=== PATIENT | female | born 1990 | race Caucasian/White ===

== ENCOUNTER → 2020-09-22 10:57 | Outpatient (BNVA) | payer MEDICAID, SELFPAY | PROVIDERS: PCP Family Medicine | DX: N20.0 Calculus of kidney (principal) | CPT/HCPCS: 99212 ==

== ENCOUNTER → 2020-10-06 09:03 | Outpatient (BNVA) | payer OTHER, SELFPAY | PROVIDERS: PCP Family Medicine ==

== ENCOUNTER 2021-12-31 11:42 | Emergency (ER) | payer MEDICAID, SELFPAY ==
--- NOTE | ~2021-12-31 | US_ITS ---
EXAMINATION: US PELVIS CLINICAL INFORMATION: Pain, evaluate for torsion COMPARISON: None TECHNIQUE: Ultrasound of the pelvis is performed using both transabdominal and transvaginal transducers along with Doppler. Transvaginal imaging is performed due to inadequate visualization transabdominally. FINDINGS: The uterus is measuring 5.9 x 3.1 x 3.8 cm. Retroverted and retroflexed. Endometrial canal measuring 3 mm. The right ovary is measuring 2.1 x 1.7 x 1.7 cm. Volume 3 mL. There is flow documented within the ovary. The left ovary is measuring 2.7 x 1.5 x 1.8 cm. There is flow documented within the ovary. Follicles are noted. No free fluid or obvious adnexal mass. US/US pelvic ovarian doppler IMPRESSION: No sonographic evidence for ovarian torsion. No free fluid or obvious adnexal mass
--- NOTE | ~2021-12-31 | US_ITS ---
EXAMINATION: US PELVIS CLINICAL INFORMATION: Pain, evaluate for torsion COMPARISON: None TECHNIQUE: Ultrasound of the pelvis is performed using both transabdominal and transvaginal transducers along with Doppler. Transvaginal imaging is performed due to inadequate visualization transabdominally. FINDINGS: The uterus is measuring 5.9 x 3.1 x 3.8 cm. Retroverted and retroflexed. Endometrial canal measuring 3 mm. The right ovary is measuring 2.1 x 1.7 x 1.7 cm. Volume 3 mL. There is flow documented within the ovary. The left ovary is measuring 2.7 x 1.5 x 1.8 cm. There is flow documented within the ovary. Follicles are noted. No free fluid or obvious adnexal mass. US/US pelvic and transvaginal IMPRESSION: No sonographic evidence for ovarian torsion. No free fluid or obvious adnexal mass
--- NOTE | ~2021-12-31 | CT_ITS ---
EXAMINATION: CT ABDOMEN AND PELVIS WITH CONTRAST CLINICAL INFORMATION: Flank pain. UTI. COMPARISON: None TECHNIQUE: Multidetector volumetric images were obtained from the superior aspect of the liver through the pubic symphysis following administration 85 mL of Omnipaque 350 intravenous contrast. Sagittal and coronal reformatted images were obtained on the technologist's workstation. Oral contrast: No This CT examination was performed using dose optimization techniques as appropriate, variously including the following: *Automated exposure control *Adjustment of mA and/or kV according to patient size (this includes techniques or standardized protocols for targeted exams where dose is matched to indication/reason for exam; i.e. extremities or head) *Use of iterative reconstruction technique DLP: 750 mGy-cm FINDINGS: LUNG BASES: The visualized lung bases are unremarkable. LIVER, GALLBLADDER, AND BILIARY TREE: The liver is normal in size, shape, and attenuation. No focal hepatic lesion or biliary ductal dilatation is present. The gallbladder is unremarkable with no evidence of radiopaque gallstones, gallbladder wall thickening, or obvious pericholecystic inflammatory changes. PANCREAS: Unremarkable. SPLEEN: Unremarkable. ADRENAL GLANDS: Unremarkable. KIDNEYS AND URETERS: The kidneys are normal in size, shape, and attenuation. No hydronephrosis, hydroureter, or calculi seen. No perinephric stranding. BLADDER: Unremarkable. GASTROINTESTINAL TRACT: There is no acute abnormality of the bowel. There is no bowel wall thickening /edema. There is no bowel obstruction. There is a moderate to large volume of stool in the colon. The appendix is normal . The small bowel loops are unremarkable. The stomach is normal. There is no hiatal hernia. ABDOMINAL WALL: No significant hernia is appreciated. LYMPH NODES: Normal. VASCULAR: Unremarkable. PELVIC VISCERA: Unremarkable. OSSEOUS STRUCTURES: Unremarkable. CT/CT abdomen pelvis w IV con IMPRESSION: No significant abnormality. Fleischner guidelines were followed.
[2021-12-31 11:45] VITALS: BP 124/88; PULSE 100; RESP 19; TEMP 36.6; O2SAT 98; BMI 28.1
[2021-12-31 12:26] LABS: MANUAL DIFF FLAG NO
[2021-12-31 12:32] LABS: Basophils Percent Auto 0.3 % (0-2); Eosinophils Absolute Auto 0.1 X10*3/uL (0.0-0.4); Eosinophils Percent Auto 0.9 % (0-4); Hematocrit 40.6 % (37.0-47.0); Hemoglobin 13.9 g/dl (12.0-16.0); Imm Gran Abs Auto 0.03 X10*3/uL (0.00-0.03); Imm Gran Pct Auto 0.2 % (0.0-0.4); Lymphocytes Absolute Auto 2.9 X10*3/uL (1.2-4.9); Lymphocytes Percent Auto 21.2 % (20-40); Mean Corpuscular HGB Conc 34.2 g/dl (31.0-35.0); Mean Corpuscular Hemoglobin 29.6 pg (27.0-33.0); Mean Corpuscular Volume 86.4 fL (80.0-98.0); Monocytes Absolute Auto 0.8 X10*3/uL (0.1-1.2); Monocytes Percent Auto 5.7 % (2-11); Neutrophils Absolute Auto 9.9 x10*3/uL (2.0-8.3); Neutrophils Percent Auto 71.7 % (45-73); Platelet Count 199 X10*3/uL (160-400); Red Cell Distribution Width 11.8 % (11.0-16.0); White Blood Count 13.9 X10*3/uL (4.8-10.8)
[2021-12-31 12:37] LABS: UPreg QC Valid YES; Urine Pregnancy NEGATIVE (NEGATIVE)
[2021-12-31 12:43] LABS: Alanine Aminotransferase 21 U/L (0-31); Albumin Level 4.2 g/dL (3.5-5.0); Alkaline Phosphatase 89 U/L (39-117); Anion Gap 14 (12-20); Aspartate Amino Transferase 18 U/L (5-31); Bilirubin Direct 0.2 mg/dL (0.0-0.5); Bilirubin Total 0.3 mg/dL (0.0-1.0); Blood Urea Nitrogen 13 mg/dL (9-16); Calcium 9.3 mg/dL (8.4-10.2); Carbon Dioxide 26 mmol/L (22-29); Chloride 104 mmol/L (96-108); Creatinine Clr Calc Pharmacy 111.3; Estimated Glomerular Filt Rate > 60; Glucose Random 102 mg/dL (60-115); Lipase 25 U/L (8-78); Potassium 4.2 mmol/L (3.3-5.1); Sodium 140 mmol/L (135-145); Total Protein 6.9 g/dL (6.5-8.0)
[2021-12-31 12:44] LABS: Appearance Urine Turbid; Color Urine Orange; Glucose Urine UA Negative (Negative); Leukocyte Esterase Urine Large (3+) (Negative); Nitrite Urine Positive (Negative); PH 6.5 (5.0-9.0); UMIC TRIGGER UACC YES; Urine Blood Large (3+) (Negative); Urine Ketones Negative (Negative); Urine Protein 300 (3+) mg/dL (Neg-Trace)
[2021-12-31 12:47] LABS: Bacteria Urine 4+ (None Seen); Hyaline Casts Urine 0-2 /LPF (0-2); RBC Urine >20 /HPF (0-2); UACC Culture Trigger YES; WBC Urine >50 /HPF (0-5)
--- NOTE | 2021-12-31 16:07 | ED.ABDPAIN ---
HPI - Abdominal Pain General Chief Complaint: Abdominal Pain Stated Complaint: severe back pain Time Seen by Provider: 12/31/21 15:59 Source: patient Mode of arrival: ambulatory Limitations: no limitations History of Present Illness HPI narrative: 31-year-old female with a PMHx of interstitial cystitis and nephrolithiasis who presents to the ED for evaluation of abdominal pain and flank pain. The patient tells me that for the past 3 weeks she has had worsening lower abdominal pain, bilateral flank pain worse on the right, nausea, and vomiting. She tells me that the pain in her lower abdomen has been worsening and that she has been having difficulty urinating and pain when she urinates. She tells me that she has had urethral polyps removed 3 years ago and recalls having similar pain at that time. She takes Oxybutinin for her intersitial cystitis but has had minimal relief. She saw her PCP this morning for this pain and was advised to come into the ED for further evaluation. She tells me that she has been feeling feverish at home but denies any chills, hematuria, headaches, vision changes, chest pain, or shortness of breath. She does note a remote history of SVT and feeling some fluttering in her chest recently. Of note, the patient is receiving suboxone therapy currently. MD elicited complaint: abdominal pain Related Data Previous Rx's Medication Instructions Recorded codeine sulfate 30 mg tablet 30 mg PO BID PRN diarrhea #20 tabs 09/22/20 Flomax 0.4 mg capsule (tamsulosin) 0.4 mg PO BEDTIME interstitial 10/05/20 cystitis 30 days #30 caps oxybutynin chloride 15 mg 15 mg PO BID 30 days #60 tabs 11/19/21 tablet,extended release 24 hr ketorolac 10 mg tablet 10 mg PO TID PRN pain 5 days #15 12/31/21 tabs levofloxacin 750 mg tablet 750 mg PO DAILY 7 days #7 tabs 12/31/21 Allergies Allergy/AdvReac Type Severity Reaction Status Date / Time amoxicillin Allergy Unknown Verified 09/17/19 00:00 clavulanic acid [Augmentin] Allergy Unknown Verified 09/17/19 00:00 nitrofurantoin [Macrobid] Allergy Unknown Verified 09/17/19 00:00 penicillin V Allergy Unknown Verified 09/17/19 00:00 doxycycline AdvReac Unknown rash Verified 09/17/19 00:00 1st Base Allergy Unknown Uncoded 09/17/19 00:00 sulfa Allergy Unknown Uncoded 09/17/19 00:00 Sulfacet-R Allergy Unknown Uncoded 09/17/19 00:00 tomato Allergy Unknown Uncoded 09/17/19 00:00 TraMADol HCl (Biphasic) Allergy Unknown Uncoded 09/17/19 00:00 Vicodin Allergy Unknown Uncoded 09/17/19 00:00 Review of Systems Review of Systems Constitutional : No Weight loss, + Fever, No Chills, + Fatigue, + Malaise ENT/Mouth : No sore throat, No Rhinorrhea Eyes: No Eye Pain, No Swelling, No Redness Cardiovascular : No Chest Pain, No SOB, No Dyspnea on Exertion, No Orthopnea, No Edema, + Palpitations Respiratory : No Cough, No Sputum, No Wheezing Gastrointestinal : + Nausea, + Vomiting, No Diarrhea, No Constipation, No abdominal Pain, No Hematochezia, No Melena Genitourinary : + Dysuria, + Urinary Frequency, No Hematuria, Musculoskeletal : + joint pain, No Myalgias, No Joint Swelling Skin : No Skin Lesions, No rash Neuro : No Weakness, No Numbness, No Dizziness, No Headache All other systems reviewed and are negative Yes all other systems are reviewed and are negative [facility] Past Medical History Attestation statement: The following information was validated with the patient. Source: old records reviewed and nursing notes reviewed Medical History (Updated 12/31/21 @ 19:30 by FRITZ Johansen) Anxiety Interstitial cystitis (chronic) with hematuria Opioid abuse PTSD (post-traumatic stress disorder) SVT (supraventricular tachycardia) Social History Social History Alcohol intake: never Patient Tobacco Use Status: Current everyday Tobacco user Cigarettes Per Day: 9 Years Smoked: Smoker since age 16 Smoked in Last 30 Days: Yes Use of substances other than those prescribed or required for medical reasons: Yes Substance Use Type: Marijuana Substance Use Frequency: Chronic Longstanding Advance Directives: No Advance Directives Information Provided: Yes Patient : No Physical Exam ED Vital Signs: Vital Signs - 24 hr 12/31/21 11:45 12/31/21 17:30 12/31/21 18:00 Temperature 98 F 99.3 F 98.6 F Pulse Rate 100 69 61 Respiratory Rate 19 16 18 Blood Pressure 124/88 115/77 124/70 Pulse Oximetry 98 97 100 Oxygen Delivery Method Room Air Room Air Room Air Oxygen Flow Rate 98 12/31/21 19:52 Temperature Pulse Rate 63 Respiratory Rate 18 Blood Pressure 123/75 Pulse Oximetry 95 Oxygen Delivery Method Room Air Oxygen Flow Rate BMI result Body Mass Index 28.1 vss Appearance: Alert.? Oriented X3.? No acute distress.?Non toxic appearing Head: Normocephalic, atraumatic, no step-offs or deformities Eyes: Pupils equal, round and reactive to light.? Neck: Normal inspection.? Neck supple.? CVS: Normal heart rate and rhythm.? Pulses normal.? Respiratory: No respiratory distress.? Breath sounds normal.? Abdomen: Soft. + BS. Suprapubic tenderness to palpation. Mild flank tenderness bilaterally. Skin: Skin warm and dry.? Normal skin color.? Normal skin turgor.? Extremities: No lower extremity edema.? No calf ttp. 5/5 strength to bilateral upper and lower extremities DTR wnl to b/l lower extremities 2+ Back: No midline tenderness, no C-spine tenderness, full range of motion, + mild CVA tenderness bilaterally, worse on the right Neuro: Oriented X 3.? No motor deficit.? No sensory deficit. CN 2-12 intact . No saddle paresthesias. Ambulating w/ steady gait and normal coordination Course Reevaluation(s) Reevaluation #1: Patient noted to have leukocytosis, chemistry without acute electrolyte abnormalities requiring intervention. Urine clean. Still high suspicion for pylo. Patient romeo be given IV Levofloxacin. Lactic, blood cultures and abd/ pelvis CT pending at this time. Time: 16:14 Reevaluation #2: Patient now admits to pelvic pain, going on for few weeks worsening. Patient tells me she feels like there is some discomfort in her vagina. Currently not sexually active. Denies history of STDs/STIs. At this time pelvic ultrasound an ovarian ultrasound will be ordered to rule out torsion, cyst, polyps. Time: 16:59 Reevaluation #3: Unremarkable CT of abd and pelvis. US pending Time: 18:06 Additional Reevaluation(s): 191 Upon further questioning patient tells me she has had 2 urinary tract infections within the past 2 weeks patient has been on Cipro and Macrobid without relief of symptoms. Patient's ultrasound pelvic ovarian Doppler with no evidence of ovarian torsion or free fluid. No signs of adnexal masses. TT to Dr. Puentes for input. 1929 Dr. Puentes tells me that this is likely interstitial cystitis, patient should receive IV ceftriaxone and oral Levaquin for 7 days and recommend outpatient Urology follow-up. He tells me I feel as though patient is sick she should be admitted to the hospitalist team however patient hemodynamically stable, patient requesting to go home, no need for hospital admission at this time. I did instruct her that if symptoms persist or do not improve she should return for further evaluation possible hospital admission. At this time patient will be given additional antibiotics plan is for discharge home with p.o. antibiotics. Educated patient on plan, verbalizes understanding and I answered all questions. 2007 Patient reports significant improvement after Toradol and initial dose of antibiotics. Patient currently getting ceftriaxone, tolerating it well. Patient will be discharged home with prompt PCP and urology follow-up. 2035 Patient tolerated antibiotics well currently being discharged home. MDM - Abdominal Pain MDM Narrative Medical decision making narrative: 1609 31 yo F presenting for abdominal pain, flank pain, nausea, and vomiting x 3 weeks. Hx of interstitial cystitis on oxybutinin, kidney stones and urethral polyps s/p removal. Seen by Dr. Davison in the past. PE remarkable for mild suprapubic tenderness and mild bilateral flank pain, worse on the right. Afebrile. Concerns for pylo. Other differentials include uti vs cystitis, kidney stones, obstructing uropathy. Unlikely cauda equina, epidural abcess. Plan- labs, hc, urine, ct abd & pelvis Medical Records Attestation: I reviewed the patient's medical records. Lab Data Attestation: I reviewed the patient's lab results. Result diagrams: 12/31/21 12:21 12/31/21 12:21 Labs: Lab Results 12/31/21 12/31/21 12/31/21 Range/Units 12:20 12:21 12:21 WBC 13.9 H (4.8-10.8) X10*3/uL RBC 4.70 (4.20-5.50) X10*6/uL Hgb 13.9 (12.0-16.0) g/dl Hct 40.6 (37.0-47.0) % MCV 86.4 (80.0-98.0) fL MCH 29.6 (27.0-33.0) pg MCHC 34.2 (31.0-35.0) g/dl RDW 11.8 (11.0-16.0) % Plt Count 199 (160-400) X10*3/uL MPV 10.0 (9.4-12.3) fL Immature Gran % (Auto) 0.2 (0.0-0.4) % Neut % (Auto) 71.7 (45-73) % Lymph % (Auto) 21.2 (20-40) % [place] % (Auto) 5.7 (2-11) % Eos % (Auto) 0.9 (0-4) % Baso % (Auto) 0.3 (0-2) % Lymph # (Auto) 2.9 (1.2-4.9) X10*3/uL [place] # (Auto) 0.8 (0.1-1.2) X10*3/uL Eos # (Auto) 0.1 (0.0-0.4) X10*3/uL Baso # (Auto) 0.0 (0.0-0.2) X10*3/uL Abs Immat Gran (auto) 0.03 (0.00-0.03) X10*3/uL Absolute Neuts (auto) 9.9 H (2.0-8.3) x10*3/uL Absolute Nucleated RBC 0.000 (0.0-0.012) X10*3/uL Nucleated RBC % (auto) 0.0 (0.0-0.2) /100WBC Sodium 140 (135-145) mmol/L Potassium 4.2 (3.3-5.1) mmol/L Chloride 104 (96-108) mmol/L Carbon Dioxide 26 (22-29) mmol/L Anion Gap 14 (12-20) BUN 13 (9-16) mg/dL Creatinine 0.79 (0.5-1.4) mg/dL Estim Creat Clear Calc 111.3 Estimated GFR > 60 Random Glucose 102 (60-115) mg/dL Lactic Acid (0.5-2.0) mmol/L Calcium 9.3 (8.4-10.2) mg/dL Total Bilirubin 0.3 (0.0-1.0) mg/dL Direct Bilirubin 0.2 (0.0-0.5) mg/dL AST 18 (5-31) U/L ALT 21 (0-31) U/L Alkaline Phosphatase 89 (39-117) U/L Total Protein 6.9 (6.5-8.0) g/dL Albumin 4.2 (3.5-5.0) g/dL Lipase 25 (8-78) U/L Urine Color Urine Appearance Urine pH (5.0-9.0) Ur Specific [place] (1.005-1.025) Urine Protein (Neg-Trace) mg/dL Urine Glucose (UA) (Negative) mg/dL Urine Ketones (Negative) mg/dL Urine Blood (Negative) Urine Nitrite (Negative) Ur Leukocyte Esterase (Negative) Urine RBC (0-2) /HPF Urine WBC (0-5) /HPF Ur Squamous Epith Cells (0-2) /HPF Urine Bacteria (None Seen) Hyaline Casts (0-2) /LPF Urine Test NEGATIVE (NEGATIVE) 12/31/21 12/31/21 Range/Units 12:21 16:17 WBC (4.8-10.8) X10*3/uL RBC (4.20-5.50) X10*6/uL Hgb (12.0-16.0) g/dl Hct (37.0-47.0) % MCV (80.0-98.0) fL MCH (27.0-33.0) pg MCHC (31.0-35.0) g/dl RDW (11.0-16.0) % Plt Count (160-400) X10*3/uL MPV (9.4-12.3) fL Immature Gran % (Auto) (0.0-0.4) % Neut % (Auto) (45-73) % Lymph % (Auto) (20-40) % [place] % (Auto) (2-11) % Eos % (Auto) (0-4) % Baso % (Auto) (0-2) % Lymph # (Auto) (1.2-4.9) X10*3/uL [place] # (Auto) (0.1-1.2) X10*3/uL Eos # (Auto) (0.0-0.4) X10*3/uL Baso # (Auto) (0.0-0.2) X10*3/uL Abs Immat Gran (auto) (0.00-0.03) X10*3/uL Absolute Neuts (auto) (2.0-8.3) x10*3/uL Absolute Nucleated RBC (0.0-0.012) X10*3/uL Nucleated RBC % (auto) (0.0-0.2) /100WBC Sodium (135-145) mmol/L Potassium (3.3-5.1) mmol/L Chloride (96-108) mmol/L Carbon Dioxide (22-29) mmol/L Anion Gap (12-20) BUN (9-16) mg/dL Creatinine (0.5-1.4) mg/dL Estim Creat Clear Calc Estimated GFR Random Glucose (60-115) mg/dL Lactic Acid 0.7 (0.5-2.0) mmol/L Calcium (8.4-10.2) mg/dL Total Bilirubin (0.0-1.0) mg/dL Direct Bilirubin (0.0-0.5) mg/dL AST (5-31) U/L ALT (0-31) U/L Alkaline Phosphatase (39-117) U/L Total Protein (6.5-8.0) g/dL Albumin (3.5-5.0) g/dL Lipase (8-78) U/L Urine Color [place] A Urine Appearance Turbid Urine pH 6.5 (5.0-9.0) Ur Specific [place] 1.020 (1.005-1.025) Urine Protein 300 (3+) H (Neg-Trace) mg/dL Urine Glucose (UA) Negative (Negative) mg/dL Urine Ketones Negative (Negative) mg/dL Urine Blood Large (3+) H (Negative) Urine Nitrite Positive H (Negative) Ur Leukocyte Esterase Large (3+) H (Negative) Urine RBC >20 H (0-2) /HPF Urine WBC >50 H (0-5) /HPF Ur Squamous Epith Cells 3-5 (0-2) /HPF Urine Bacteria 4+ (None Seen) Hyaline Casts 0-2 (0-2) /LPF Urine Test (NEGATIVE) ECG Data Attestation: I personally reviewed and interpreted this ECG as follows: ECG interpretation date: 12/31/21 ECG interpretation time: 20:37 Prior ECG tracings: available for review Interpretation: Ventricular rate of 58, AR normal, QRS normal, QT/QTC normal. EKG with bradycardia, no ST elevations or inversions concerning for ischemia. No previous EKGs for comparison Critical Care Time Critical Care Time Critical Care Time: Yes Total Critical Care Time: 35 Attestation: I attest to this time spent taking care of the patient, obtaining history, physical, reviewing labs, imaging, speaking to my attending, speaking to specialist. Discharge Plan Discharge Clinical Impression: UTI (urinary tract infection), Interstitial cystitis Patient Disposition: Home, Self-Care Instructions: Urinary Tract Infection in Women (ED) Additional Instructions: Take your medications as prescribed. If you were prescribed antibiotics today, it is important that you take your medication to their entirety, do not skip any doses, do not finish them early. Follow-up with your primary care provider this week. Please follow-up with Dr. Puentes call his office to see if he can get a sooner appointment. Return to the emergency department with new or worsening symptoms. Such as fevers, chills, chest pain, shortness of breath, nausea, vomiting, dizziness, headache, vision changes, lethargy In case of emergency call 911 You have been placed on Levaquin, this type of antibiotic belongs to a family called fluoroquinolones, there is a black box warning on this medication for tendon rupture, please refrain from physical activity or exercise for 2-3 weeks or until medically cleared. Levofloxacin has been sent to her pharmacy, please do not take tizanidine with this medication. Prescriptions: New ketorolac 10 mg tablet 10 mg PO TID PRN (Reason: pain) 5 Days Qty: 15 0RF Rx Instructions: Tolerated IV in ED levofloxacin 750 mg tablet 750 mg PO DAILY 7 Days Qty: 7 0RF No Action tamsulosin [Flomax] 0.4 mg capsule 0.4 mg PO BEDTIME 30 Days Qty: 30 0RF oxybutynin chloride 15 mg tablet extended release 24hr 15 mg PO BID 30 Days Qty: 60 1RF codeine sulfate 30 mg tablet 30 mg PO BID PRN (Reason: diarrhea) Qty: 20 0RF Referrals: Reji Puentes MD [Physician] - 3 days Physician,Ladonna Candelario [Primary Care Provider] - 2 days Stand Alone Forms: Work/School Release
--- NOTE | 2021-12-31 16:29 | ECG_ITS ---
Test Reason : ABDOMINAL PAIN Blood Pressure : / mmHG Vent. Rate : 058 BPM Atrial Rate : 058 BPM P-R Int : 168 ms QRS Dur : 076 ms QT Int : 380 ms P-R-T Axes : -62 049 -19 degrees QTc Int : 373 ms Unusual P axis, possible ectopic atrial bradycardia Nonspecific T wave abnormality Abnormal ECG No previous ECGs available Referred By: Fred Hess Electronically Signed By:TRISHA SOLIS
[2021-12-31 16:34] LABS: Lactic Acid 0.7 mmol/L (0.5-2.0)
[2021-12-31] MEDS: iohexoL 350 MG/ML 100 ML INFUS..BTL IV (17:25)
[2021-12-31 17:30] VITALS: BP 115/77; PULSE 69; RESP 16; TEMP 37.4; O2SAT 97
[2021-12-31] MEDS: 0.9 % Sodium Chloride 1,000 ML 999 ML IV (17:43)
[2021-12-31] MEDS: levoFLOXacin/D5W 750 MG/150 ML PIGGYBACK 100 MG IV (17:43)
[2021-12-31] MEDS: ondansetron HCL 4 MG/2 ML VIAL IVPUSH (17:44)
[2021-12-31] MEDS: Ketorolac Tromethamine 15 MG/ML VIAL IVPUSH (17:44)
[2021-12-31 18:00] VITALS: BP 124/70; PULSE 61; RESP 18; TEMP 37; O2SAT 100
[2021-12-31 19:52] VITALS: BP 123/75; PULSE 63; RESP 18; O2SAT 95
[2021-12-31] MEDS: diphenhydrAMINE HCL 50 MG/ML VIAL 25 MG IVPUSH (19:56)
[2021-12-31] MEDS: cefTRIAXone sodium 1 GM in 0.9 % Sodium Chloride 50 ML IV (19:56)
--- NOTE | 2021-12-31 20:06 | PC.NURSE ---
pt a&ox3, vss, reporting 7-9/10 pain/spasms in lower pelvis, medicated per provider order, no new orders at this time.
== END 2021-12-31 21:25 | disposition home or self-care (01) ==
PROVIDERS: Physician Assistant; Emergency Provider Internal Medicine
DX: N30.10 Interstitial cystitis (chronic) without hematuria (principal); B96.20 Unspecified Escherichia coli [E. coli] as the cause of diseases classified elsewhere; R10.9 Unspecified abdominal pain; F11.20 Opioid dependence, uncomplicated; Z79.899 Other long term (current) drug therapy
CPT/HCPCS: 36415; 74177; 76830; 76856; 80048; 80076; 81001; 81025; 83605; 83690; 85025; 87040; 87086; 87088; 87186; 93005; 93975; 96361; 96365; 96375; 99285; J0696; J1200; J1885; J1956; J2405; Q9967

== ENCOUNTER → 2022-06-08 14:11 | Outpatient (BNVA) | payer MEDICAID, SELFPAY | PROVIDERS: PCP Family Medicine; Visit Provider Nurse Practitioner Family | DX: N30.10 Interstitial cystitis (chronic) without hematuria (principal); R39.89 Other symptoms and signs involving the genitourinary system | CPT/HCPCS: 99212 ==

== ENCOUNTER 2022-12-28 13:19 | Outpatient (AMB) | payer MEDICAID, SELFPAY ==
--- NOTE | 2022-12-28 13:20 | A.OFFVIS_ITS ---
Intake Intake Visit Reasons: Medication follow up Intake Note: Patient is present for tele visit follow up interstitial cystitis Urology Medications: oxybutynin Blood Thinner: none Operations And Maintenance Supervisor Required: No Allergies amoxicillin Allergy (Unknown, Verified 12/28/22 20:19) Unknown clavulanic acid [Augmentin] Allergy (Unknown, Verified 12/28/22 20:19) Unknown nitrofurantoin [Macrobid] Allergy (Unknown, Verified 12/28/22 20:19) Unknown penicillin V Allergy (Unknown, Verified 12/28/22 20:19) Unknown doxycycline Adverse Reaction (Unknown, Verified 12/28/22 20:19) rash 1st Base Allergy (Unknown, Uncoded 12/28/22 20:19) Unknown sulfa Allergy (Unknown, Uncoded 12/28/22 20:19) Unknown Sulfacet-R Allergy (Unknown, Uncoded 12/28/22 20:19) Unknown tomato Allergy (Unknown, Uncoded 12/28/22 20:19) Unknown TraMADol HCl (Biphasic) Allergy (Unknown, Uncoded 12/28/22 20:19) Unknown Vicodin Allergy (Unknown, Uncoded 12/28/22 20:19) Unknown Medication List - Last Reconciled 12/28/22 by EDWIN Sampson- atenolol 25 mg PO DAILY buprenorphine-naloxone 12-3 mg (Suboxone) 15 mg sublingual DAILY clonazepam 1 mg PO TID PRN minoxidil 2.5 mg PO DAILY 90 days norgestrel-ethinyl estradiol 0.3-30 mg-mcg (Low-Ogestrel (28)) 1 tab PO DAILY oxybutynin chloride ER 15 mg PO BID 30 days HPI HPI Comments History of Present Illness Details Cierra is a 32 year old female patient of Dr. Mcghee. She has a past medical history of opiate abuse, PTSD, anxiety, SVT, and interstitial cystitis. She is being follow-up on today via video telehealth for follow-up of her interstitial cystitis. Of note, patient was originally scheduled for follow-up in office however reports over the last 24 hours has not been feeling well. She reports following up with her PCP regarding nausea and vomiting she has been experiencing. She reports feeling her interstitial cystitis has been somewhat controlled. She does report some days to have/experience lower urinary tract symptoms however she reports episodes are infrequent. She reports most recently noting a spasm to her vagina however is unsure if it is her bladder. She reports to be following up with supervisor cigar making hand for further assessment evaluation. Discussed at length interstitial cystitis. Discussed pelvic floor therapy as well as interstitial cystitis diet. Discussed and stressed the importance of drinking plenty of water daily. However, patient reports she has a difficult time doing so. She otherwise denies hematuria, nocturia, flank pain, fever and or chills. Discussed further assessment evaluation with renal bladder ultrasound however patient also declines at this time. Discussed in office cystoscopy for further assessment evaluation however patient declines at this time. Discussed rescue solution/therapy for interstitial cystitis however patient reports she will need to think about this. Discussed at length bladder triggers/irritant. [facility] Medical History Anxiety Interstitial cystitis (chronic) with hematuria Opioid abuse PTSD (post-traumatic stress disorder) SVT (supraventricular tachycardia) Social History Alcohol intake: never Patient Tobacco Use Status: Current everyday Tobacco user Cigarettes Per Day: 9 Years Smoked: Smoker since age 16 Substance Use Type: Marijuana Review of Systems Const Reports as per HPI Eyes Reports no additional complaints ENT Reports no additional complaints Card Reports as per HPI Resp Reports no additional complaints GI Reports as per HPI Reports as per HPI Musc Reports no additional complaints Neuro Reports no additional complaints Psych Reports as per HPI Endo Reports no additional complaints Physical Exam Const General: cooperative, healthy appearing, comfortable, no acute distress, well developed, alert and awake Orientation/consciousness: patient oriented x3 Resp Effort & Inspection: normal respiratory effort and able to speak in complete sentences Neuro General: patient oriented x3 Psych Appearance: grossly normal and well kempt Mental Status: mental status grossly normal Speech and movement: Clear speech present Affect: normal affect Attitude: cooperative Thought process: Normal thought process present Thought content: Normal thought content present Insight: Good insight present (Psych) Judgement: Good judgement present (Psych) Assessment & Plan Assessment & Plan (1) Interstitial cystitis: Code(s): N30.10 - Interstitial cystitis (chronic) without hematuria (2) Lower urinary tract symptoms: Code(s): R39.9 - Unspecified symptoms and signs involving the genitourinary system Plan Discussed at length interstitial cystitis Discussed pelvic floor therapy. Information provided on vaginal weights and videos for in-home practice Discussed interstitial cystitis diet. Discussed, educated, and stressed the importance of drinking plenty of water daily. Continue oxybutynin as prescribed Continue to follow with PCP regarding new onset nausea vomiting and supervisor cigar making hand for question vaginal spasms patient is reporting. Discussed further treatment options/interventions; such as retroperitoneal ultrasound, in office cystoscopy, cystoscopy hydrodistention, bladder installations, and or referral to pelvic floor therapy however patient declines at this time Follow-up in office in 3 months with PVR; or sooner with any issues, concerns, and or questions. Patient Instructions: The patient had an opportunity to ask questions regarding the treatment plan. All questions were answered. Physical exam, labs, and imaging were discussed and reviewed in detail. As well as risks, benefits, and discussion of treatment choices. No major barriers to understanding were identified. The patient expressed understanding and agreement with the above treatment plan. The patient was made aware they should contact our office by phone for worsening of their current condition, the appearance of new symptoms, or with any questions or concerns. Compliance is encouraged with any medications and follow up testing that is ordered. It is a privilege to be allowed the opportunity to participate in? your urological care.? Again, if you have any questions or concerns If you have any questions or concerns please do not hesitate to contact me. The office is [phone]. This note is constructed using voice recognition software. While every effort has been made to ensure accuracy brake drum molder errors may have been included. Yours sincerely, Mansi Mederos [facility] Telehealth Telehealth Location of provider rendering services: practice address Location of patient: address on file Patient Identification confirmed using: Name, : Yes Telehealth method: video Patient verbally consented to treatment: Yes Patient verbally consented to billing insurance company: Yes Patient informed of any privacy concerns related to visit: Yes Minutes spent on Phone/Video with Pt.: 35 Coding Level of Care Code Tele Est Pt Level 4 (23395) Diagnoses Interstitial cystitis N30.10 Lower urinary tract symptoms R39.9
--- OUTSIDE RECORDS SUMMARY | 2022-12-28 13:20 | XMS_ITS | Continuity of Care Document ---
Author Name Unknown Organization [facility] ter Address [address] [place] [id number]- Care Team Providers Care [employer] Teacher Name Role Phone Charity Obregon NP Primary Care Physician [phone] Encounter [place] Date(s): 08/12/22 - 09/17/[address] [address]- Attending Physician: Moose Mehta DMD Admitting Physician: Moose Mehta DMD Allergies, Adverse Reactions, Alerts Substance Reaction Severity Status doxycycline VOMITING Mild Active sulfa drugs RASH Mild Active amoxicillin THROAT CLOSES RASH Severe Active penicillins RASH, THROAT CLOSES Severe Active Augmentin RASH Mild Active Vicodin RASH, CONGESTION Mild Active Terazol 3 Active Seafood RASH, VOMITING Active Medications atenolol 25 mg oral tablet 25 mg, 1, tablet, By Mouth, Daily, # 90 tablet, Refills 3, Tot. Refills 3, Maintenance, 09/23/15 12:40:00, Route to Pharmacy Electronically, [id number], [facility]/pharmacy #[id number] Start Date: 09/23/15 Status: Ordered control control, Refills 0, Maintenance, 07/06/11 9:07:05 Start Date: 07/06/11 Status: Ordered Clonazepam = 1 mg, By Mouth, 3 times a day, 0 Refills, Maintenance, 06/07/11 11:24:59 EST Start Date: 06/07/11 Status: Ordered hydrOXYzine hydrochloride 25 mg oral tablet 1 tablet = 25 mg, By Mouth, Daily at bedtime, # 14 tablet, 0 Refills, Soft Stop, 04/21/18 10:37:02 EST, Tablet Start Date: 04/21/18 Stop Date: 05/05/18 Status: Ordered Oxybutynin = 25 mg, By Mouth, 2 times a day, 0 Refills, Maintenance, 08/17/22 10:21:00 EDT Start Date: 08/17/22 Status: Ordered Suboxone 2 mg-0.5 mg sublingual film 1 film, Sublingual, Daily in AM, CUT IN HALF, 0 Refills, Maintenance, 08/17/22 10:18:00 EDT Start Date: 08/17/22 Status: Ordered Suboxone 8 mg-2 mg sublingual film 2 film, Sublingual, Daily at bedtime, 0 Refills, Maintenance, 08/17/22 10:19:00 EDT Start Date: 08/17/22 Status: Ordered Wellbutrin SR 150 mg/12 hours oral tablet, extended release 1 tablet = 150 mg, By Mouth, Daily, 0 Refills, Maintenance, 08/17/22 10:21:00 EDT Start Date: 08/17/22 Status: Ordered Problem List Condition Confirmation Course Effective Dates Status Health St atus Informant Palpitations - rapid Confirmed Active Vital Signs Most recent to oldest [Reference Range]: 1 Height 170.18 cm (08/17/22 11:03 AM) Weight 81.82 kg (08/17/22 11:03 AM) Body Mass Index [18.5-24.99 kg/m2] 28.25 kg/m2 *H* (08/17/22 11:03 AM) Dry Weight 81.82 kg (08/17/22 11:03 AM) Weight Obtained Via Patient/family state d (08/17/22 11:03 AM) Dry Weight Obtained Via Patient/family s tated (08/17/22 11:03 AM) Social History Social History Type Response Smoking Status Current every day antwon layne entered on: 01/29/14 Sex Note * Event Display: Adult Preadmission Health Questionnaire Authored Date: Patient Care team information Care Team Personnel Name: Charity Obregon NP Position: Reference Physician Member Role: PCP Address: Address: [address] [place] [address]- Care Team Related Persons Name: ADRIEL JADYN Address: home [address] [place] [address] Name: LIZ STERLING Address: home [address] [place] [address]
--- OUTSIDE RECORDS SUMMARY | 2022-12-28 13:20 | XMS_ITS | Continuity of Care Document ---
Author Name Unknown Organization [facility] ter Address [address] [place] [address]- Care Team Providers Care Batch Unit Treater Name Role Phone Charity Obregon NP Primary Care Physician Encounter [facility] Date(s): 09/05/22 - 09/05/[address] [address] Discharge Disposition: A-D/C Home Attending Physician: Moose Mehta DMD Admitting Physician: Moose Mehta DMD Referring Physician: Moose Mehta DMD Allergies, Adverse Reactions, Alerts Substance Reaction Severity Status doxycycline VOMITING Mild Active amoxicillin THROAT CLOSES RASH Severe Active penicillins RASH, THROAT CLOSES Severe Active sulfa drugs RASH Mild Active Augmentin RASH Mild Active Vicodin RASH, CONGESTION Mild Active Terazol 3 Active Seafood RASH, VOMITING Active Medications atenolol 25 mg oral tablet 25 mg, 1, tablet, By Mouth, Daily, # 90 tablet, Refills 3, Tot. Refills 3, Maintenance, 09/23/15 12:40:00, Route to Pharmacy Electronically, [id number], [facility]/pharmacy #[id number] Start Date: 09/23/15 Status: Ordered control [...] Most recent to oldest [Reference Range]: 1 2 3 Oxygen Saturation [94-100 %] 99 % (09/05/22 5:30 PM) 99 % (09/05/22 5:15 PM) 100 % (09/05/22 5:00 PM) Pulse Rate [55-90 bpm] 87 bpm (09/05/22 2:50 PM) Blood Pressure [90-138/55-84 mm Hg] 137/79mm Hg (09/05/22 5:30 PM) 141/88mm Hg *H* (09/05/22 5:15 PM) 126/84mm Hg (09/05/22 5:00 PM) Respiratory Rate [16-30 br/min] 11 br/min *L* (09/05/22 5:30 PM) 14 br/min *L* (09/05/22 5:15 PM) 13 br/min *L* (09/05/22 5:00 PM) Temperature [96.8-100.4 DegF] 98.0 DegF (09/05/22 4:45 PM) 98.3 DegF (09/05/22 2:50 PM) Liters per Minute 8 L/min (09/05/22 4:45 PM) Mode of Delivery (Oxygen) Room air (09/05/22 5:30 PM) Room air (09/05/22 5:15 PM) Room air (09/05/22 5:00 PM) Blood pressure sites Arm, right (09/05/22 5:30 PM) Arm, right (09/05/22 5:15 PM) Arm, right (09/05/22 5:00 PM) Temperature Route Temporal (09/05/22 4:45 PM) Temporal (09/05/22 2:50 PM) Dry Weight 86.1 kg (09/05/22 2:50 PM) Dry Weight Obtained Via Standing scale (09/05/22 2:50 PM) Social History Social History Type Response Smoking Status Current every day antwon tillman entered on: 01/29/14 Sex Note * Rigo Sebastian RN: PERFORM Event Display: Discharge/Transfer Note Hospital Authored Date: [id number] Nursing Discharge Note Entered On: 09/05/2022 17:42 EDT Performed On: 09/05/2022 17:42 EDT by Rigo Sebastian RN Nursing Discharge Note 2 Discharge Time : 09/05/2022 17:45 EDT Discharge Level of Care at Discharge : Home/Assisted/Foster Care Patient Left Unit Via : Wheelchair Patient Accompanied Off Unit with : Significant other DC Instructions Provided & Signed by Pt : Yes Patient Understands D/C Instructions : Yes Patient Instructions Discharge Signed : Yes Did Pt have Specialty Bed or Wound Vac : No Rigo Sebastian RN - 09/05/2022 17:42 EDT * Rigo Sebastian RN: PERFORM Event Display: Patient Education/Instruction Authored Date: [id number] Inpatient Adult Discharge Instructions [address] [address] Name: ADRIEL SALOMON : 1990 Visit: 09/05/2022 14:01:00 Current Date: 09/05/2022 17:15 Account: [id number] Inpatient Adult Discharge Instructions We would like to thank you for allowing us to assist you with your healthcare needs. The following includes patient education materials and information regarding your injury/illness. Our entire staffstrives to provide an excellent experience for our patients and their families. PLEASE ENSURE YOU FOLLOW-UP PER THE INSTRUCTIONS BELOW! ?? YOUR OPINION IS IMPORTANT TO US! Please complete the survey you may receive by mail or email. Your feedback will be used to make improvements to the healthcare experiences of our patients and their families. Surveys are administered by [employer] ?? If further treatment with your primary care physician or another doctor is recommended, it is important for you to keep the appointment. Call your primary care physician or return to the Emergency Department immediately if your condition worsens, fails to improve, or new symptoms develop. If you need to find a doctor, you can call [facility] Risk I/O for a referral at [phone] or toll free at [phone]) or log in to [email or web address].. ?? You can view and manage your care through the patient portal or by using a health care cain of your choosing. [employer] is a website that allows you to securely view your medical information including your hospital discharge summary, office visit summaries, medications and follow-up visits. You can also request appointments, renew medications, and request access to your medical information using a health care cain of your choosing, or just ask a question. You can enroll at [email or web address] or register during your next office visit. You have been discharged from [facility], Patient Care Unit: [facility]. If you have any questions regarding these instructions after you leave, please call us and we will be happy to assist you. [facility] Your Care Team Attending Physician Moose Mehta DMD Consulting Providers Christopher Hernandez DO Discharging Providers Moose Mehta DMD Reason for Your Visit DENTAL CARIESDS CS Tests Performed Below is a partial list of the tests performed during your hospitalization. You may have had other tests and procedures not included in this list. Please discuss all test results with your provider. Primary Care Provider Charity Obregon NP Advance Directive . Discharge Vitals Temperature: 98 DegF Pulse Rate: 87 bpm Respiratory Rate:??13 br/min??Low Systolic Blood Pressure: 126 mm Hg Diastolic Blood Pressure: 84 mm Hg Oxygen Saturation: 100 % Studies Pending All tests and labs ordered during this hospital stay have been completed unless listed below. Please discuss all pending results with your provider listed above in these instructions. ?? No incomplete studies found What to do next Instructions From Your Doctor Discharge Orders Instructions from your Care Team follow Dr. Mehta's written discharge instructions ?? written prescriptions sent with pt You Need to Schedule the Following Appointments Follow Up with??Janine DMD, Max When:??09/14/2022 01:40 AM EDT Where: [address] [place] [address], [address] [facility] [place] [address]- Discharge Medications ADRIEL SALOMON :1990 Visit Date:09/05/2022 Medications: Please continue your medications until treatment is completed or stopped by your provider. Medications not listed below should be discontinued. Discuss any questions related to medications with your provider. What How Much When Instructions Next Dose Unchanged Atenolol (atenolol 25 mg oral tablet) 1 tab(s) Oral Daily Unchanged Buprenorphine-Naloxone (Suboxone 2 mg-0.5 mg sublingual film) 1 Film Sublingual Daily in the morning CUT IN HALF ?? Unchanged Buprenorphine-Naloxone (Suboxone 8 mg-2 mg sublingual film) 2 Film Sublingual Daily at Bedtime Unchanged BuPROpion (Wellbutrin SR 150 mg/ 12 hours oral tablet, extended release) 1 tab(s) Oral Daily Unchanged Clonazepam 1 Milligram Oral 3 times a day Unchanged HydrOXYzine (hydrOXYzine hydrochloride 25 mg oral tablet) 1 tab(s) Oral Daily at Bedtime Duration: 14 Days Unchanged Miscellaneous Rx ( control) Unchanged Oxybutynin 25 Milligram Oral Twice a day Test Results Below is a partial list of the most recent Laboratory test results done prior to this discharge. You may have had other tests and procedures not included in this list. Please discuss all test resultswith your provider. Allergies (NKA means No Known Allergies) amoxicillin??(THROAT CLOSES, RASH) penicillins??(RASH, THROAT CLOSES) Augmentin??(RASH) Vicodin??(RASH, CONGESTION) doxycycline??(VOMITING) sulfa drugs??(RASH) Seafood??(RASH, VOMITING) Terazol 3 Problems Active Problems??(1) Palpitations - rapid?? Education Materials Below is the list of Educational Leaflet Providered with your Discharge Instructions. Surgery Medical Daystay Surgical Overnight Discharge Instructions?? Valuables and Belongings I fully understand and agree that [facility] accepts no responsibility for all my personal property including clothing, toilet articles, radios, jewelry, dentures, hearing aids, rings, money, or any other property that is in my possession or is brought to me after admission. I understand certain valuables may be placed in a hospital safe for a short period of time. I understand that the hospital is not liable for loss or damage due to accident, fire, or other natural occurrence while said property is in the safe. I accept full responsibility for any personal property that I keep with me, and will not hold the hospital responsible in case of loss or disappearance. I acknowledge that i have been encouraged to send valuables and belongings home. ?? Date for Pt to Sign Valuables/Belongings: 09/05/22 14:50:00 ?? Valuables & Belongings ?? Clothes Electronic devices Jewelry Monetary Items Personal devices Miscellaneous Medications (Valuables) Valuables at Bedside Pants, Shirt, Shoes, Undergarments ? Purse ? Valuables Sent Home ? Valuables Sent to Security ? Other Discharge Information ? Pulmonary Rehab Status?? Pulmonary Rehab Discharge Status?? Respiratory Rate:??13 br/min??Low ? Common Emergency Awareness Tips IS IT A STROKE? Act FAST and Check for these signs: FACE Does the face look uneven? ARM Does one arm drift down? SPEECH Does their speech sound strange? TIME Call at any sign of stroke ?? Heart Attack Signs Chest discomfort: Most heart attacks involve discomfort in the center of the chest and lasts more than a few minutes, or goes away and comes back. It can feel like uncomfortable pressure, squeezing, fullness or pain. Discomfort in upper body: Symptoms can include pain or discomfort in one or both arms, back, neck, jaw or stomach. Shortness of breath: With or without discomfort. Other signs: Breaking out in a cold sweat, nausea, or lightheaded. Remember, MINUTES DO MATTER. If you experience any of these heart attack warning signs, call to get immediate medical attention! ?? Smoking can increase your chances of developing chronic health problems and can cause harmful effects to other family members in your house. If you smoke, you are strongly encouraged to quit. Please call [facility] [email or web address].uk Link at [phone] or [phone] ([phone]) or log in to [email or web address] for referrals to smoking cessation programs. ?? 273 Suicide & Crisis Lifeline is available 07/11 if you or someone you know needs to find a reason to keep living. By calling 554 you'll be connected to a skilled, trained counselor at a crisis center in your area. INPATIENT DISCHARGE INSTRUCTIONS SIGNATURE PAGE ADRIEL SALOMON Location:[facility] Registration Date and Time:09/05/2022 14:01 EDT Primary Care Physician: Charity Obregon NP, Attending Physician: Moose Mehta DMD, I ADRIEL SALOMON, have received the above patient education materials/instructions and have verbalized understanding. If ambulance or transport services are being used I further acknowledge beinggiven a choice of service. ?? If you need to contact me, please call me at this number: . Patient/Coal Equipment Operator Name: Patient/Coal Equipment Operator Signature: Relationship to Patient: Witness Name/Signature: Date: * Rigo Sebastian RN: PERFORM Event Display: Patient Education Leaflets Authored Date: [id number] Surgery Medical Daystay Surgical Overnight Discharge Instructions ?? 295 Medical Daystay/Surgical Overnight Discharge Instructions ? Since your coordination and judgment may be altered by medication and/or anesthesia, a responsible adult must drive you home from the hospital. ? If you have received medication for pain or sedation while under our care, you should not drive, operate machinery, drink alcohol, or sign any legal documents for 24 hours.?? You should have someone with you at home tonight. ? Remain at home the day of discharge.?? You may be up and about unless otherwise instructed by your physician. ? You may resume your daily prescription medication schedule.?? Any depressant medication should be avoided for 24 hours unless otherwise instructed by your surgeon or anesthesiologist. ? Call your physician for a follow-up appointment.? If you experience unusual or severe pain not relied by your pain medication, excessive bleedingor drainage, persistent nausea and vomiting, excessive swelling or redness, foul odor from incisionsite or fever over 100.6F, you need to call your physician. ? A follow-up phone call by a nurse will be made the day after your procedure.?? If you have stayed with us over night, you will not be receiving a follow-up phone call. ? Nausea and vomiting are a common side effect of prescription pain medication.?? We recommend that pills are not taken on an empty stomach.?? While taking any prescription pain medication you should not drive or drink alcohol. ? Patient Care team information Care Team Personnel Name: Charity Obregon NP Position: Reference Physician Member Role: PCP Address: Address: [address] [place] [id number]- Care Team Related Persons Name: JADYN MOREL Address: [address] [place] [address] Name: LIZ STERLING Address: [address] [place] [address]
== END 2022-12-28 13:53 | disposition home or self-care (01) ==
LOC: HO.HUSH 13:19
PROVIDERS: PCP Family Medicine; Visit Provider Nurse Practitioner Family
DX: N30.10 Interstitial cystitis (chronic) without hematuria (principal); R39.9 Unspecified symptoms and signs involving the genitourinary system
CPT/HCPCS: 99214

== ENCOUNTER → 2022-12-28 13:19 | Outpatient (BNVA) | payer MEDICAID, SELFPAY | PROVIDERS: PCP Family Medicine; Visit Provider Nurse Practitioner Family ==

== ENCOUNTER 2023-04-06 13:43 | Outpatient (AMB) | payer MEDICAID, SELFPAY ==
--- NOTE | 2023-04-06 13:56 | MHC.OFFVIS ---
Intake Intake Visit Reasons: 3m/PVR Intake Note: Patient is present for tele visit follow up interstitial cystitis Urology Medications: oxybutynin Blood Thinner: none PVR: 0ml's User Interface Engineer Required: No Allergies amoxicillin Allergy (Unknown, Verified 04/06/23 17:02) Unknown clavulanic acid [Augmentin] Allergy (Unknown, Verified 04/06/23 17:02) Unknown nitrofurantoin [Macrobid] Allergy (Unknown, Verified 04/06/23 17:02) Unknown penicillin V Allergy (Unknown, Verified 04/06/23 17:02) Unknown doxycycline Adverse Reaction (Unknown, Verified 04/06/23 17:02) rash 1st Base Allergy (Unknown, Uncoded 04/06/23 17:02) Unknown sulfa Allergy (Unknown, Uncoded 04/06/23 17:02) Unknown Sulfacet-R Allergy (Unknown, Uncoded 04/06/23 17:02) Unknown tomato Allergy (Unknown, Uncoded 04/06/23 17:02) Unknown TraMADol HCl (Biphasic) Allergy (Unknown, Uncoded 04/06/23 17:02) Unknown Vicodin Allergy (Unknown, Uncoded 04/06/23 17:02) Unknown Medication List - Last Reconciled 04/06/23 by EDWIN Sampson- atenolol 25 mg PO DAILY buprenorphine-naloxone 12-3 mg (Suboxone) 15 mg sublingual DAILY buprenorphine-naloxone 8-2 mg (Suboxone) 20 mg sublingual DAILY bupropion HCl 150 mg PO QAM clonazepam 1 mg PO TID PRN minoxidil 2.5 mg PO DAILY 90 days norgestrel-ethinyl estradiol 0.3-30 mg-mcg (Low-Ogestrel (28)) 1 tab PO DAILY oxybutynin chloride ER 15 mg PO BID 90 days tizanidine 4 mg PO BID HPI HPI Comments History of Present Illness Details Cierra is a 32 year old female patient of Dr. Mcghee. She has a past medical history of opiate abuse, PTSD, anxiety, SVT, and interstitial cystitis. She presents to the office today for follow-up of her overactive bladder and interstitial cystitis. In discussion with the patient today she reports to be doing and feeling well regarding her urinary issues. She reports feeling oxybutynin 15 mg daily continues to be effective for her overactive bladder symptoms. However, she discusses at length her mental health and has been following up with her PCP for med management. She discusses feeling her new dose of Wellbutrin and Celexa seem to be the right ones for her. She discusses her new job she has had since at a [employer] and how she is trying to work to save money to fix her car. When asked she reports to be attempting to drink plenty of water daily. She otherwise denies hematuria, nocturia, flank pain, fever and or chills. Discussed further assessment evaluation with renal bladder ultrasound, cystoscopy, and or rescue solutions if symptoms arise. In office urinalysis results reviewed with the patient today. PVR 0 mL. She otherwise denies any other bothersome issues or concerns at this time. [facility] Medical History Opioid abuse PTSD (post-traumatic stress disorder) Anxiety SVT (supraventricular tachycardia) Interstitial cystitis (chronic) with hematuria Social History Alcohol intake: never Patient Tobacco Use Status: Current everyday Tobacco user Cigarettes Per Day: 9 Years Smoked: Smoker since age 16 Substance Use Type: Marijuana Review of Systems Const Reports as per HPI Eyes Reports no additional complaints ENT Reports no additional complaints Card Reports as per HPI Resp Reports no additional complaints GI Reports as per HPI Reports as per HPI Musc Reports no additional complaints Neuro Reports no additional complaints Psych Reports as per HPI Endo Reports no additional complaints Physical Exam Const General: cooperative, healthy appearing, comfortable, no acute distress, well developed, alert and awake Orientation/consciousness: patient oriented x3 Limitations: no limitations HEENT Head: Yes normal to inspection, Yes normocephalic and Yes atraumatic Ears: hearing grossly normal bilaterally Eyes General: appearance normal, both eyes and all related structures Neck Neck: Yes normal visual inspection and Yes trachea midline Chest Chest palpation & inspection: normal inspection of the chest Resp Effort & Inspection: normal respiratory effort and able to speak in complete sentences Cardio Rate: regular rate GI Inspection: Yes normal to inspection General: Yes no CVA tenderness Back/Spine/Pelvis Back: no CVA tenderness Skin General skin exam: no rashes or lesions noted Neuro General: patient oriented x3 Extrem General: Yes normal to inspection Psych Appearance: grossly normal and well kempt Mental Status: mental status grossly normal Speech and movement: Normal speech and movement present and Clear speech present Affect: normal affect Attitude: cooperative Thought process: Normal thought process present Thought content: Normal thought content present Insight: Fair insight present (Psych) Judgement: Fair judgement present (Psych) Office Procedures Post Void Residual Post Residual Void Post Void Residual (PVR): 0 [id number]-[id number] Void Residual by ultrasound Results AMB Urinalysis, Automated UA Leukoctes 15 Bar/uL Last Edit by [employer] on 04/06/23 14:15 UA Nitrite Negative Last Edit by [employer] on 04/06/23 14:15 UA Urobilinogen 0.2 mg/dL Last Edit by [employer] on 04/06/23 14:15 UA Protein 15 mg/dL Last Edit by Work[employer] on 04/06/23 14:15 UA pH 6.0 Last Edit by Work[employer] on 04/06/23 14:15 UA Blood 0 Shan/uL Last Edit by Worklight on 04/06/23 14:15 UA Specific [place] 1.030 Last Edit by Worklight on 04/06/23 14:15 UA Ketone Negative Last Edit by Worklight on 04/06/23 14:15 UA Bilirubin 0 mg/dL Last Edit by Worklight on 04/06/23 14:15 UA Glucose 0 mg/dL Last Edit by Worklight on 04/06/23 14:15 Results Reviewed Results Reviewed: Laboratory Last Values Urine pH (Auto) 6.0 04/06/23 14:03 Specific [place] (Auto) 1.030 04/06/23 14:03 Urine Protein (Auto) 15 mg/dL 04/06/23 14:03 Glucose (UA)(Auto) 0 mg/dL 04/06/23 14:03 Urine Ketones (Auto) Negative 04/06/23 14:03 Urine Blood (Auto) 0 Shan/uL 04/06/23 14:03 Urine Nitrite (Auto) Negative 04/06/23 14:03 Urine Bilirubin (Auto) 0 mg/dL 04/06/23 14:03 Urine Urobilinogen (Auto) 0.2 mg/dL 04/06/23 14:03 Leukocyte Esterase (Auto) 15 Bar/uL 04/06/23 14:03 Assessment & Plan Assessment & Plan (1) Interstitial cystitis: Code(s): N30.10 - Interstitial cystitis (chronic) without hematuria (2) Lower urinary tract symptoms: Code(s): R39.9 - Unspecified symptoms and signs involving the genitourinary system Plan In office urinalysis results reviewed with the patient today; as noted above PVR 0 mL Patient currently denies any bothersome urinary issues or concerns Discussed at length importance of utilizing bathroom regularly to void Discussed at length interstitial cystitis Patient continues to perform pelvic floor exercises at home Discussed interstitial cystitis diet. Discussed, educated, and stressed the importance of drinking plenty of water daily. Continue oxybutynin as prescribed; refill provided Discussed further treatment options/interventions; such as retroperitoneal ultrasound, in office cystoscopy, cystoscopy hydrodistention, and or bladder installations if symptoms arise. Follow-up in 6 months with PVR; or sooner with any issues, concerns, and or questions. Orders: Orders AMB Urinalysis Automated Today Z13.9 - Encounter for screening, unspecified AMB Post Void Residual by ultrasound Today R39.9 - Unspecified symptoms and signs involving the genitourinary system Medications: Refilled oxybutynin chloride ER 15 mg PO BID 90 days 180 tabs 2RF Patient Instructions: The patient had an opportunity to ask questions regarding the treatment plan. All questions were answered. Physical exam, labs, and imaging were discussed and reviewed in detail. As well as risks, benefits, and discussion of treatment choices. No major barriers to understanding were identified. The patient expressed understanding and agreement with the above treatment plan. The patient was made aware they should contact our office by phone for worsening of their current condition, the appearance of new symptoms, or with any questions or concerns. Compliance is encouraged with any medications and follow up testing that is ordered. It is a privilege to be allowed the opportunity to participate in? your urological care.? Again, if you have any questions or concerns If you have any questions or concerns please do not hesitate to contact me. The office is [phone]. This note is constructed using voice recognition software. While every effort has been made to ensure accuracy director and professor errors may have been included. Yours sincerely, ANUJ Sampson Coding Level of Care Code Est Pt Level 3 (95863) Diagnoses Interstitial cystitis N30.10 Lower urinary tract symptoms R39.9 CPT Codes Post Residual Void - PVR CPT Code: 87584-Dgvd Void Residual by ultrasound ([id number])
== END 2023-04-06 14:50 | disposition home or self-care (01) ==
PROVIDERS: PCP Family Medicine; Visit Provider Nurse Practitioner Family
DX: N30.10 Interstitial cystitis (chronic) without hematuria (principal); R39.9 Unspecified symptoms and signs involving the genitourinary system; Z13.9 Encounter for screening, unspecified
CPT/HCPCS: 99213

== ENCOUNTER → 2023-04-06 13:43 | Outpatient (BNVA) | payer MEDICAID, SELFPAY | PROVIDERS: PCP Family Medicine; Visit Provider Nurse Practitioner Family | DX: N30.10 Interstitial cystitis (chronic) without hematuria (principal); R39.9 Unspecified symptoms and signs involving the genitourinary system | CPT/HCPCS: 51798; 81003; 99212 ==

== ENCOUNTER 2023-09-21 12:01 | Outpatient (REF) | payer MEDICAID, SELFPAY ==
[2023-09-21 12:29] LABS: Appearance Urine Cloudy; Color Urine Dark Yellow; Glucose Urine UA Negative (Negative); Leukocyte Esterase Urine Trace (Negative); Nitrite Urine Positive (Negative); UMIC TRIGGER UA YES; Urine Blood Negative (Negative); Urine Ketones Negative (Negative); Urine Protein Negative (Neg-Trace)
[2023-09-21 12:35] LABS: Bacteria Urine 4+ (None Seen); Hyaline Casts Urine 0-2 /LPF (0-2); RBC Urine 0-2 /HPF (0-2)
== END 2023-09-21 12:02 | disposition home or self-care (01) ==
LOC: HO.LAB 12:01
PROVIDERS: PCP Nurse Practitioner; Visit Provider Nurse Practitioner Family
DX: N30.10 Interstitial cystitis (chronic) without hematuria (principal); R39.9 Unspecified symptoms and signs involving the genitourinary system; R39.89 Other symptoms and signs involving the genitourinary system
CPT/HCPCS: 81001; 87086

== ENCOUNTER 2024-05-13 11:31 | Outpatient (AMB) | payer MEDICAID, SELFPAY ==
--- NOTE | 2024-05-13 11:39 | A.OFFVIS_ITS ---
Intake Visit Reasons: follow up/PVR Intake Note: Patient presents today for follow up on: interstitial cystitis Urology Medications: oxybutynin Blood Thinner: none PVR: 0ml's Marble Setter Required: No Accompanied by: Self / Same As Patient Allergies amoxicillin Allergy (Unknown, Verified 05/13/24 12:17) Unknown clavulanic acid [Augmentin] Allergy (Unknown, Verified 05/13/24 12:17) Unknown nitrofurantoin [Macrobid] Allergy (Unknown, Verified 05/13/24 12:17) Unknown penicillin V Allergy (Unknown, Verified 05/13/24 12:17) Unknown doxycycline Adverse Reaction (Unknown, Verified 05/13/24 12:17) rash 1st Base Allergy (Unknown, Uncoded 05/13/24 12:17) Unknown sulfa Allergy (Unknown, Uncoded 05/13/24 12:17) Unknown Sulfacet-R Allergy (Unknown, Uncoded 05/13/24 12:17) Unknown tomato Allergy (Unknown, Uncoded 05/13/24 12:17) Unknown TraMADol HCl (Biphasic) Allergy (Unknown, Uncoded 05/13/24 12:17) Unknown Vicodin Allergy (Unknown, Uncoded 05/13/24 12:17) Unknown Medication List - Last Reconciled [facility]13[facility] aten[facility] 25 mg PO DAILY buprenorphine-naloxone 12-3 mg (Suboxone) 15 mg sublingual DAILY buprenorphine-naloxone 8-2 mg (Suboxone) 20 mg sublingual DAILY bupropion HCl XL 150 mg PO QAM clonazepam mg PO BID norgestrel-ethinyl estradiol 0.3-30 mg-mcg (Low-Ogestrel (28)) 1 tab PO DAILY oxybutynin chloride ER 15 mg PO BID 90 days sumatriptan succinate mg PO tizanidine 4 mg PO BID HPI Comments Details: Cierra is a 33 year old female patient of Dr. Hall. She has a past medical history of opiate abuse, PTSD, anxiety, SVT, and interstitial cystitis. She presents to the office today for follow-up of her overactive bladder and interstitial cystitis. In discussion with the patient today she reports since her last office visit here over a year ago she has been under a lot of stress. She discusses being unable to make it to follow-up appointments as scheduled due to other health issue she has been experiencing as well as the recent sudden decline in her mother's mental and physical health. She discusses at length her mother's medical issues. She also discusses following up with her PCP frequently as she has lost over 55 lb in the last year to year and a half unintentionally. She continues to report episodes of urinary urgency, urinary frequency, straining with urination, and bladder pressure. She reports feeling oxybutynin is helpful with episodes of urinary urgency and frequency however continues to experience bladder pressure. In office urinalysis results reviewed with the patient today 1+ microscopic hematuria. We discussed at length potential causes of microscopic hematuria. She does have a longstanding history of nicotine dependence however is attempting to quit. She reports smoking for over 15 years if not longer. She does have a previous history of a cystoscopy with hydrodistention in the past with Dr. White and felt this was helpful. In review of patient's chart ([facility]) it does appear patient underwent 11/2018 cystoscopy, hydrodistention, bladder biopsy x4 with coagulation and fulguration. Pathology 12/03 noted urethral mucosa with acute and chronic inflammation and reactive urothelial atypia; negative for malignancy. She reports previously being on Elmiron for her interstitial cystitis however started experiencing hair loss therefore discontinued the medication. We discussed further workup of microscopic hematuria to include in office cystoscopy however patient discusses at length her history of anxiety and PTSD and does not feel she will be able to undergo an in office cystoscopy. We discussed obtaining CT urogram for further assessment evaluation and obtaining cystoscopy under sedation. She was enquiring repeat hydrodistention as she felt this was helpful in the past. She otherwise denies gross/visible hematuria, flank pain, fever, and or chills. PVR 0 mL. She otherwise offers no other issues or concerns at this time. [facility] Medical History Opioid abuse PTSD (post-traumatic stress disorder) Anxiety SVT (supraventricular tachycardia) Interstitial cystitis (chronic) with hematuria Social History Alcohol intake: never Patient Tobacco Use Status: Current everyday Tobacco user Cigarettes Per Day: 9 Years Smoked: Smoker since age 16 Substance Use Type: Marijuana Review of Systems Const Reports as per HPI Eyes Reports no additional complaints ENT Reports no additional complaints Card Reports as per HPI Resp Reports no additional complaints GI Reports as per HPI Reports as per HPI Musc Reports no additional complaints Neuro Reports no additional complaints Psych Reports as per HPI Endo Reports no additional complaints Physical Exam Const General: cooperative, healthy appearing, comfortable, no acute distress, well developed, alert and awake Orientation/consciousness: patient oriented x3 Limitations: no limitations HEENT Head: Yes normal to inspection, Yes normocephalic and Yes atraumatic Ears: hearing grossly normal bilaterally Eyes General: appearance normal, both eyes and all related structures Neck Neck: Yes normal visual inspection and Yes trachea midline Chest Chest palpation & inspection: normal inspection of the chest Resp Effort & Inspection: normal respiratory effort and able to speak in complete sentences Cardio Rate: regular rate GI Inspection: Yes normal to inspection General: Yes no CVA tenderness Back/Spine/Pelvis Back: no CVA tenderness Skin General skin exam: no rashes or lesions noted Neuro General: patient oriented x3 Extrem General: Yes normal to inspection Psych Appearance: grossly normal and well kempt Mental Status: mental status grossly normal Speech and movement: Normal speech and movement present and Clear speech present Affect: normal affect Attitude: cooperative Thought process: Normal thought process present Thought content: Normal thought content present Insight: Fair insight present (Psych) Judgement: Fair judgement present (Psych) Office Procedures Post Void Residual Post Residual Void Post Void Residual (PVR): 0 [id number] Void Residual by ultrasound Results AMB Urinalysis, Automated UA Leukoctes 0 Bar/uL Last Edit by Suksh Tech.minda Townsend on 05/13/24 12:11 UA Nitrite Last Edit by Benefex Groupethan Townsend on 05/13/24 12:11 UA Urobilinogen 0.2 mg/dL Last Edit by Benefex [employer]an Townsend on 05/13/24 12:11 UA Protein 15 mg/dL Last Edit by Benefex [employer]an Townsend on 05/13/24 12:11 UA pH 6.0 Last Edit by Lizzette Townsend on 05/13/24 12:11 UA Blood 25 Shan/uL Last Edit by Lizzette Townsend on 05/13/24 12:11 UA Specific [place] 1.025 Last Edit by Lizzette Townsend on 05/13/24 12:11 UA Ketone Last Edit by Lizzette Townsend on 05/13/24 12:11 UA Bilirubin 1 mg/dL Last Edit by Lizzette Townsend on 05/13/24 12:11 UA Glucose 0 mg/dL Last Edit by Lizzette Townsend on 05/13/24 12:11 Results Reviewed Results Reviewed: Laboratory Last Values Urine pH (Auto) 6.0 05/13/24 11:47 Specific [place] (Auto) 1.025 05/13/24 11:47 Urine Protein (Auto) 15 mg/dL 05/13/24 11:47 Glucose (UA)(Auto) 0 mg/dL 05/13/24 11:47 Urine Blood (Auto) 25 Shan/uL 05/13/24 11:47 Urine Bilirubin (Auto) 1 mg/dL 05/13/24 11:47 Urine Urobilinogen (Auto) 0.2 mg/dL 05/13/24 11:47 Leukocyte Esterase (Auto) 0 Bar/uL 05/13/24 11:47 Assessment & Plan Assessment & Plan (1) Nicotine dependence: Code(s): F17.200 - Nicotine dependence, unspecified, uncomplicated Category: Medical (2) Microscopic hematuria: Code(s): R31.29 - Other microscopic hematuria Category: Medical (3) Lower urinary tract symptoms: Code(s): R39.9 - Unspecified symptoms and signs involving the genitourinary system Category: Medical (4) Sensation of pressure in bladder area: Code(s): R39.89 - Other symptoms and signs involving the genitourinary system Category: Medical (5) Interstitial cystitis: Code(s): N30.10 - Interstitial cystitis (chronic) without hematuria Category: Medical Plan: Risks, benefits and alternatives to therapy were discussed. These include but are not limited to infection, bleeding, damage to local organs and tissues, need for further interventions. ? Anesthetic risks regarding cardiac arrhythmia, blood clots, and potential mortality were discussed. The patient understands the typical recovery time and the outpatient nature of the procedure. After consideration of these risks the patient gives full informed consent and they wish to move ahead with the procedure. Plan In office urinalysis results reviewed with the patient today; as noted above; will send for urine cytology. Continue oxybutynin as discussed and prescribed. We discussed importance of following up as planned. Will obtain CT urogram for further assessment evaluation. BUN and creatinine ordered for imaging. We discussed at length potential causes for lower urinary tract symptoms patient was experiencing as well as further treatment options and risks and benefits of these treatment options. We discussed bladder triggers/irritants. PVR 0 mL. Will refer to pelvic floor therapy for further assessment evaluation. Will schedule for cystoscopy under sedation with hydrodistention as well as possible bladder biopsies. Follow-up per doctor's orders; or sooner with any issues, concerns, and or questions. Orders: Orders AMB Post Void Residual by ultrasound 05/13/24 R39.9 - Unspecified symptoms and signs involving the genitourinary system CT urogram 05/13/24 F17.200 - Nicotine dependence, unspecified, uncomplicated, N30.10 - Interstitial cystitis (chronic) without hematuria, R31.29 - Other microscopic hematuria, R39.89 - Other symptoms and signs involving the genitourinary system, R39.9 - Unspecified symptoms and signs involving the genitourinary system Urine Cytology 05/13/24 R31.29 - Other microscopic hematuria AMB Urinalysis Automated 05/13/24 Z13.9 - Encounter for screening, unspecified Blood Urea Nitrogen 05/13/24 F17.200 - Nicotine dependence, unspecified, uncomplicated, N30.10 - Interstitial cystitis (chronic) without hematuria, R31.29 - Other microscopic hematuria, R39.89 - Other symptoms and signs involving the genitourinary system, R39.9 - Unspecified symptoms and signs involving the genitourinary system Creatinine 05/13/24 F17.200 - Nicotine dependence, unspecified, uncomplicated, N30.10 - Interstitial cystitis (chronic) without hematuria, R31.29 - Other microscopic hematuria, R39.89 - Other symptoms and signs involving the genitourinary system, R39.9 - Unspecified symptoms and signs involving the genitourinary system PT Evaluation and Treatment 05/13/24 R10.2 - Pelvic and perineal pain Medications: Refilled oxybutynin chloride ER 15 mg PO BID 90 days 180 tabs 0RF Patient Instructions: The patient had an opportunity to ask questions regarding the treatment plan. All questions were answered. Physical exam, labs, and imaging were discussed and reviewed in detail. As well as risks, benefits, and discussion of treatment choices. No major barriers to understanding were identified. The patient expressed understanding and agreement with the above treatment plan. The patient was made aware they should contact our office by phone for worsening of their current condition, the appearance of new symptoms, or with any questions or concerns. Compliance is encouraged with any medications and follow up testing that is ordered. It is a privilege to be allowed the opportunity to participate in? your urological care.? Again, if you have any questions or concerns If you have any questions or concerns please do not hesitate to contact me. The office is [phone]. This note is constructed using voice recognition software. While every effort has been made to ensure accuracy director of consumer affairs errors may have been included. Yours sincerely, ANUJ Sampson Coding Level of Care Code Est Pt Level 4 (94202) Diagnoses Nicotine dependence F17.200 Microscopic hematuria R31.29 Lower urinary tract symptoms R39.9 Sensation of pressure in bladder area R39.89 Interstitial cystitis N30.10 CPT Codes Post Residual Void - PVR CPT Code: 95464-Brmk Void Residual by ultrasound ([id number]) Time Spent (min) 35
--- OUTSIDE RECORDS SUMMARY | 2024-05-13 16:21 | XMS_ITS | Clinical Summary ---
Author Organization [facility] Address [address] [place] [id number] Care Team Providers Care Latin Dancer Name Role Phone Shane Guthrie MD Primary Care Provider [phone] Allergies Active Allergy Reactions Criticality Noted Date Comments Amoxicillin 01/27/2020 Sulfa Antibiotics 01/27/2020 Hydrocodone-Acetaminophen 01/27/2020 Medications Medication Sig Dispensed Refills Start Date End Date Status Naloxone HCl 4 MG/0.1ML LIQD One spray in one nostril, then call 911. If no better after 3 minutes, 1 spray in other nostril and follow Pharmacy's printed instructions. 1 each 0 01/27/2020 Active ondansetron (ZOFRAN-ODT) 4 MG disintegrating tablet Take 1 tablet (4 mg total) by mouth every 6 (six) hours as needed for nausea. 10 tablet 0 01/27/2020 Active Social History Tobacco Use Types Packs/Day Years Used Date Smoking Tobacco: Never Assessed Sex and Gender Information Value Date Recorded Sex Assigned at Female 01/27/2020 12:21 AM EDT Gender Identity Not on file Sexual Orientation Not on file Last Filed Vital Signs Vital Sign Reading Time Taken Comments Blood Pressure 142/72 01/27/2020 2:04 AM EDT Pulse 91 01/27/2020 2:04 AM EDT Temperature 36.3 ??C (97.4 ??F) 01/27/2020 2:04 AM ED T Respiratory Rate 18 01/27/2020 2:04 AM EDT Oxygen Saturation 96% 01/27/2020 2:04 AM EDT Inhaled Oxygen Concentration - - Weight - - Height - - Body Mass Index - - Plan of Treatment Not on file Care Teams Latin Dancer Relationship Specialty Start Date End Date Shane Guthrie MD [address] [facility] [place] [address] PCP - General Physical Medicine and Rehabilitation 01/27/20
--- OUTSIDE RECORDS SUMMARY | 2024-05-13 16:21 | XMS_ITS | Clinical Summary ---
Author Organization [facility] ity [place] [address] Care Team Providers Care Reclamation Kettle Tender Name Role Phone Shane Guthrie MD Primary Care Provider [phone] Social History Tobacco Use Types Packs/Day Years Used Date Smoking Tobacco: Never Assessed Sex and Gender Information Value Date Recorded Sex Assigned at Not on file Gender Identity Not on file Sexual Orientation Not on file Obstetrics History Plan of Treatment Health Maintenance Due Date Last Done Comments DTaP,Tdap,and Td Vaccines (1 - Tdap) 08/27/2007 Hepatitis B Vaccines (1 of 3 - 19+ 3-dose series) 08/27/2007 Cervical Cancer Screening: P ap Smear 2009 COVID-19 Vaccine (2023-2 5 season) 2023 Influenza Vaccine (#1) 2023 HIB Vaccines Aged Out No longer eligi ble based on patient's age to complete this topic HPV Vaccines Aged Out No longer eligi ble based on patient's age to complete this topic Hepatitis A Vaccines Aged Out No long er eligible based on patient's age to complete this topic IPV Vaccines Aged Out No longer eligi ble based on patient's age to complete this topic MMR Vaccines Aged Out No longer eligi ble based on patient's age to complete this topic Meningococcal ACWY Vaccine Aged Out N o longer eligible based on patient's age to complete this topic Pneumococcal Vaccine: Pediat rics (0 to 5 Years) and At-Risk Patients (6 to 64 Years) Aged Out No longer eligible b ased on patient's age to complete this topic RSV Immunization Patients Un nayeli 20 months Aged Out No longer eligible b ased on patient's age to complete this topic Varicella Vaccines Aged Out No longer eligible based on patient's age to complete this topic Care Teams Reclamation Kettle Tender Relationship Specialty Start Date End Date Shane Guthrie MD PCP - General Physical Medicine and Rehabilitation 01/27/20
== END 2024-05-13 12:17 | disposition home or self-care (01) ==
PROVIDERS: PCP Nurse Practitioner; Visit Provider Nurse Practitioner Family
DX: F17.200 Nicotine dependence, unspecified, uncomplicated (principal); R31.29 Other microscopic hematuria; R39.9 Unspecified symptoms and signs involving the genitourinary system; R39.89 Other symptoms and signs involving the genitourinary system; N30.10 Interstitial cystitis (chronic) without hematuria
CPT/HCPCS: 99214

== ENCOUNTER 2024-05-13 11:31 | Outpatient (REF) | payer MEDICAID, SELFPAY ==
[2024-05-13 16:57] LABS: Urine Cytology See Pathology rpt
--- OUTSIDE RECORDS SUMMARY | 2024-05-13 19:20 | XMS_ITS | Clinical Summary ---
Author Organization [facility] [place] [address] Care Team Providers Care Shell Sorter Name Role Phone Shane Guthrie MD Primary Care Provider Social History Tobacco Use Types Packs/Day Years [...] age to complete this topic Care Teams Shell Sorter Relationship Specialty Start Date End Date Shane Guthrie MD PCP - General Physical Medicine and Rehabilitation 01/27/20
--- OUTSIDE RECORDS SUMMARY | 2024-05-13 19:20 | XMS_ITS | Clinical Summary ---
Author Organization [facility] Address [address] [place] [id number] Care Team Providers Care Flatwork Folder Name Role Phone Shane Guthrie MD Primary Care Provider [phone] Allergies Active Allergy Reactions Criticality Noted Date [...] of Treatment Not on file Care Teams Flatwork Folder Relationship Specialty Start Date End Date Shane Guthrie MD [address] [facility] [place] [address] PCP - General Physical Medicine and Rehabilitation 01/27/20
== END 2024-05-13 11:32 | disposition home or self-care (01) ==
LOC: HO.LNP 11:31
PROVIDERS: PCP Nurse Practitioner; Visit Provider Nurse Practitioner Family
DX: R39.9 Unspecified symptoms and signs involving the genitourinary system (principal); R31.29 Other microscopic hematuria; F17.200 Nicotine dependence, unspecified, uncomplicated; R39.89 Other symptoms and signs involving the genitourinary system; N30.10 Interstitial cystitis (chronic) without hematuria
CPT/HCPCS: 51798; 81003; 88112; 99212

== ENCOUNTER 2024-06-18 07:01 | Day surgery (SDC) | payer MEDICAID, SELFPAY ==
[2024-06-14 09:30] VITALS: BMI 21.1
--- NOTE | 2024-06-17 12:09 | P.CONAN_ITS ---
Documented by User: Puja Walters NP 06/17/24 12:10 HPI - Anesthesia Eval Consult details Narrative: 33yo F for Cystoscopy Hydrodistention of Bladder, possible bladder biopsies Suboxone 12mg daily PMFSH Active Problems Active Problems: All Active Problems Nicotine dependence (Acute) Microscopic hematuria (Acute) Lower urinary tract symptoms (Acute) Sensation of pressure in bladder area (Acute) Interstitial cystitis (Acute) Kidney stone (Acute) Past Medical History Medical History Opioid abuse PTSD (post-traumatic stress disorder) Anxiety SVT (supraventricular tachycardia) Interstitial cystitis (chronic) with hematuria Surgical History Surgical History (Updated 06/14/24 @ 09:28 by Madison Rudd RN) History of esophagogastroduodenoscopy (EGD) Hx of oral surgery Hx of cystoscopy Social History Social History (Updated 06/14/24 @ 09:30 by Madison Rudd RN) Alcohol intake: never Patient Tobacco Use Status: Current everyday Tobacco user Tobacco use type: Cigarette Cigarettes Per Day: 9 Years Smoked: 17 Substance Use Type: Former Substance User, Marijuana and Opiates Substance Use Type Other:: marijuana daily/former opiate abuse/taking suboxone Spiritual Healthcare Practices: none Orthodoxy Healthcare Practices: none Cultural Healthcare Practices: none Are you DNR?: No Advance Directives: No (S.O. is primary contact) Advance Directives on File: No Recently lost weight without trying: No Eating poorly because of decreased appetite: No Nutrition Risks: No Nutritional Risk Patient : No : No Poor oral hygiene: No (edentulous-upper full denture only) Meds Allergies Allergy/AdvReac Type Severity Reaction Status Date / Time Sulfa (Sulfonamide Allergy Severe lost Verified 06/18/24 07:29 Antibiotics) consciousness amoxicillin Allergy Unknown Unknown Verified 06/18/24 07:29 clavulanic acid [Augmentin] Allergy Unknown Unknown Verified 06/18/24 07:29 hydrocodone Allergy Unknown Unknown Verified 06/18/24 07:29 Penicillins Allergy Unknown Unknown Verified 06/18/24 07:29 tomato Allergy Unknown Unknown Verified 06/18/24 07:29 tramadol Allergy Unknown Unknown Verified 06/18/24 07:29 doxycycline AdvReac Intermediate rash Verified 06/18/24 07:29 Home Medications ?Medication ?Instructions ?Recorded ?Confirmed ?Last Taken ?Type atenolol 25 mg tablet 25 mg PO DAILY 06/08/22 06/18/24 06/18/24 History norgestrel 0.3 mg-ethinyl 1 tab PO DAILY 06/08/22 06/18/24 Unknown History estradiol 30 mcg tablet (Low-Ogestrel (28)) buprenorphine 8 mg-naloxone 2 mg 12 mg sublingual DAILY 04/06/23 06/18/24 Unknown History sublingual film (Suboxone) bupropion HCl 150 mg 24 hr tablet, 150 mg PO QAM 04/06/23 06/18/24 Unknown History extended release tizanidine 4 mg tablet 4 mg PO BID 04/06/23 06/18/24 Unknown History clonazepam 0.5 mg tablet 0.5 mg PO BID 05/13/24 06/18/24 06/18/24 History sumatriptan succinate 50 mg tablet 50 mg PO DAILY PRN Migraine 05/13/24 06/18/24 Unknown History Headache Exam Height,Weight and Vital Signs: Height 5 ft 7 in Weight 61.235 kg Assessment and Plan Assessment Anesthesia Assessment: Chart Reviewed Documented by User: Froilan Jordan MD 06/18/24 08:25 [facility] Past Medical History Medical History Opioid abuse PTSD (post-traumatic stress disorder) Anxiety SVT (supraventricular tachycardia) Interstitial cystitis (chronic) with hematuria Patient : No Family History Family history of problems with anesthesia: No Surgical History Surgical History (Updated 06/14/24 @ 09:28 by Madison Rudd RN) History of esophagogastroduodenoscopy (EGD) Hx of oral surgery Hx of cystoscopy History of Problems with Anesthesia: No Social History Social History (Updated 06/14/24 @ 09:30 by Madison Rudd RN) Alcohol intake: never Patient Tobacco Use Status: Current everyday Tobacco user Tobacco use type: Cigarette Cigarettes Per Day: 9 Years Smoked: 17 Substance Use Type: Former Substance User, Marijuana and Opiates Substance Use Type Other:: marijuana daily/former opiate abuse/taking suboxone Spiritual Healthcare Practices: none Orthodoxy Healthcare Practices: none Cultural Healthcare Practices: none Are you DNR?: No Advance Directives: No (S.O. is primary contact) Advance Directives on File: No Recently lost weight without trying: No Eating poorly because of decreased appetite: No Nutrition Risks: No Nutritional Risk Patient : No : No Poor oral hygiene: No (edentulous-upper full denture only) Meds Allergies Allergy/AdvReac Type Severity Reaction Status Date / Time Sulfa (Sulfonamide Allergy Severe lost Verified 06/18/24 07:29 Antibiotics) consciousness amoxicillin Allergy Unknown Unknown Verified 06/18/24 07:29 clavulanic acid [Augmentin] Allergy Unknown Unknown Verified 06/18/24 07:29 hydrocodone Allergy Unknown Unknown Verified 06/18/24 07:29 Penicillins Allergy Unknown Unknown Verified 06/18/24 07:29 tomato Allergy Unknown Unknown Verified 06/18/24 07:29 tramadol Allergy Unknown Unknown Verified 06/18/24 07:29 doxycycline AdvReac Intermediate rash Verified 06/18/24 07:29 Home Medications ?Medication ?Instructions ?Recorded ?Confirmed ?Last Taken ?Type atenolol 25 mg tablet 25 mg PO DAILY 06/08/22 06/18/24 06/18/24 History norgestrel 0.3 mg-ethinyl 1 tab PO DAILY 06/08/22 06/18/24 Unknown History estradiol 30 mcg tablet (Low-Ogestrel (28)) buprenorphine 8 mg-naloxone 2 mg 12 mg sublingual DAILY 04/06/23 06/18/24 Unknown History sublingual film (Suboxone) bupropion HCl 150 mg 24 hr tablet, 150 mg PO QAM 04/06/23 06/18/24 Unknown History extended release tizanidine 4 mg tablet 4 mg PO BID 04/06/23 06/18/24 Unknown History clonazepam 0.5 mg tablet 0.5 mg PO BID 05/13/24 06/18/24 06/18/24 History sumatriptan succinate 50 mg tablet 50 mg PO DAILY PRN Migraine 05/13/24 06/18/24 Unknown History Headache Exam Airway Mallampati Class: II TM Dist: >3cm Neck ROM: Full Denture: Upper and Lower Heart: ok Lungs: ok Assessment and Plan Assessment Anesthesia Assessment: Anesthesia Plan Discussed Final Anesthetic Review Family History of Problems with Anesthesia: No History of Problems with Anesthesia: No NPO: Yes ASA Class: III Final Preanesthetic Review: No Changes in Pt Med Stat, Meds/Allgs Chart Reviewed, Consent Obtained/Reviewed and Anes Risks/Benef Reviewed Patient Risk: Intermediate Procedure Risk: Low Anesthetic Plan Anesthetic Plan: GA and Agree w/ Assess. and Plan Disposition: Standard PACU
[2024-06-18] VITALS (8 sets, daily range): BP systolic 89–99; BP diastolic 58–67; PULSE 56–86; RESP 14–20; TEMP 36.1–37.2; O2SAT 99–100
[2024-06-18 07:24] LABS: UPreg QC Valid YES; Urine Pregnancy NEGATIVE (NEGATIVE)
[2024-06-18] MEDS: Lactated Ringers 1,000 ML 100 ML IVCONT (07:46)
--- NOTE | 2024-06-18 08:23 | P.OP_ITS ---
Operative Note Operative Note Date of Service: 06/18/24 Narrative: PREOP DIAGNOSIS: Interstitial cystitis, pelvic pain, microscopic hematuria POSTOP DIAGNOSIS: Interstitial cystitis, pelvic pain, microscopic hematuria, PROCEDURE: CYSTOSCOPY HYDRODISTENTION Anethesia: General Surgeon: Dr. Nataliya Doherty Details of procedure: The patient was brought into the operating room placed on the OR table in supine position. 2 g of Ancef IV. General anesthesia was administered. The patient was repositioned into lithotomy position, prepped and draped in the usual sterile fashion. Time-out was done per protocol. A 22 fr cystoscope was placed transurethrally into the bladder. Urine was drained from the bladder measuring 200 mL. The right and left ureteral orifices were visualized. The entire bladder was visualized. Scarring from previous bladder biopsies noted. There were no suspicious bladder lesions seen. The bladder was filled with sterile water at 80 cm of water pressure under gravity. The bladder was distended for 2 minutes. Bladder capacity measured 950 mL. Revisualization of the bladder, noted mild petechaie. No Hunner ulcerations. The bladder was refilled with sterile water again at 80 cm of water pressure und er gravity. The bladder was distended for 3 minutes. The fluid was drained from the bladder and measured 1000 mL. The cystoscope was removed. 2% lidocaine urojet was passed transurethrally, Solution of (1% lidocaine plain, 15 mL, 0.5 % Marcaine 15 mL) instilled transurethrally into the bladder. Belladonna suppository per recturm. The patient was brought out of anesthesia and taken to recovery in stable condition. Complications: None EBL: minimal (<5 mL) Drains: none
--- NOTE | 2024-06-18 08:24 | MHC.SHP ---
Pre-Procedural Eval Section A - 24 Hr Update-Section A only Date of Service: 06/18/24 The patient is an INPATIENT: No The patient has been examined within 24 hours of the surgical procedure. The History & Physical has been completed within 30 days and I have reviewed it.: Yes Section B - Complete if H&P > 30 days Chief Complaint: Interstitial cystitis (chronic) without hematuria Allergies: Allergies Allergy/AdvReac Type Severity Reaction Status Date / Time Sulfa (Sulfonamide Allergy Severe lost Verified 06/18/24 07:29 Antibiotics) consciousness amoxicillin Allergy Unknown Unknown Verified 06/18/24 07:29 clavulanic acid [Augmentin] Allergy Unknown Unknown Verified 06/18/24 07:29 hydrocodone Allergy Unknown Unknown Verified 06/18/24 07:29 Penicillins Allergy Unknown Unknown Verified 06/18/24 07:29 tomato Allergy Unknown Unknown Verified 06/18/24 07:29 tramadol Allergy Unknown Unknown Verified 06/18/24 07:29 doxycycline AdvReac Intermediate rash Verified 06/18/24 07:29 Plan Diagnosis/Plan: Unchanged I have reviewed the history and physical and performed a pertinent physical examination on my patient. No changes have occurred unless specified. Cystoscopy. Hydrodistension. Discussed risks to include but not limited to, blood in the urine, burning with urination, urgency. Time Spent With Patient Time: Total time managing care of this patient today ____ minutes.
[2024-06-18] MEDS: Phenazopyridine HCL 200 MG TABLET PO (09:34)
[2024-06-18] MEDS: Acetaminophen 325 MG TABLET 975 MG PO (09:35)
[2024-06-18] MEDS: hydrOXYzine HCL 50 MG/ML VIAL IM (10:04)
== END 2024-06-18 10:31 | disposition home or self-care (01) ==
PROVIDERS: Nurse Practitioner; Visit Provider Urology
PROC: 0T7B7ZZ Dilation of Bladder, Via Natural or Artificial Opening (ICD-10-PCS; CPT 52260; principal; 2024-06-18 08:40)
DX: N30.11 Interstitial cystitis (chronic) with hematuria (principal); R10.2 Pelvic and perineal pain; R31.29 Other microscopic hematuria; I47.10 Supraventricular tachycardia, unspecified; F41.9 Anxiety disorder, unspecified; F43.10 Post-traumatic stress disorder, unspecified; F11.11 Opioid abuse, in remission; Z79.899 Other long term (current) drug therapy; Z88.0 Allergy status to penicillin; Z88.1 Allergy status to other antibiotic agents; Z88.2 Allergy status to sulfonamides; Z88.5 Allergy status to narcotic agent; F17.210 Nicotine dependence, cigarettes, uncomplicated
CPT/HCPCS: 52260; 81025; J0690; J1644; J2003; J2250; J2405; J2704; J2795; J3010; J3410

== ENCOUNTER → 2024-06-18 07:01 | Outpatient (BNV) | payer MEDICAID, SELFPAY | PROVIDERS: Visit Provider Urology | DX: N30.10 Interstitial cystitis (chronic) without hematuria (principal) | CPT/HCPCS: 52260 ==

== ENCOUNTER 2024-06-24 13:39 | Outpatient (REF) | payer MEDICAID, SELFPAY ==
--- OUTSIDE RECORDS SUMMARY | 2024-06-24 18:29 | XMS_ITS | Clinical Summary ---
Author Organization [facility] [place] [address] Care Team Providers Care Rehabilitation Medicine Physician Name Role Phone Shane Guthrie MD Primary Care Provider [phone] Social History Tobacco Use Types Packs/Day Years Used Date Smoking Tobacco: Never Assessed Comments Unknown Sex and Gender Information Value Date Recorded Sex Assigned at Not on file Legal Sex Female 11:11 PM EST Gender Identity Not on file Sexual Orientation Not on file Obstetrics History Plan of Treatment Health Maintenance Due Date Last Done Comments DTaP,Tdap,and Td Vaccines (1 - Tdap) 08/27/2007 Hepatitis B Vaccines (1 of 3 - 19+ 3-dose series) 08/27/2007 Cervical Cancer Screening: P ap Smear 2009 COVID-19 Vaccine ( - 2023-2 5 season) 2023 Influenza Vaccine (#1) 2023 [...] patient's age to complete this topic Meningococcal B Vacine Aged Out No lo nger eligible based on patient's age to complete [...] age to complete this topic Care Teams Rehabilitation Medicine Physician Relationship Specialty Start Date End Date Shane Guthrie MD PCP - General Physical Medicine and Rehabilitation 01/27/20
--- OUTSIDE RECORDS SUMMARY | 2024-06-24 18:29 | XMS_ITS | Clinical Summary ---
Author Organization [facility] Address [address] [place] [id number] Care Team Providers Care Car Rental Agent Name Role Phone Shane Guthrie MD Primary Care Provider [phone] Allergies Active Allergy Reactions Criticality Noted Date [...] of Treatment Not on file Care Teams Car Rental Agent Relationship Specialty Start Date End Date Shane Guthrie MD [address] [facility] [place] [address] PCP - General Physical Medicine and Rehabilitation 01/27/20
== END 2024-06-24 13:40 | disposition home or self-care (01) ==
LOC: HO.LNP 13:39
PROVIDERS: PCP Nurse Practitioner; Visit Provider Urology
DX: N30.10 Interstitial cystitis (chronic) without hematuria (principal); R39.9 Unspecified symptoms and signs involving the genitourinary system
CPT/HCPCS: 51798; 87086

== ENCOUNTER 2024-07-11 | Outpatient (REF) | payer MEDICAID, SELFPAY ==
--- OUTSIDE RECORDS SUMMARY | 2024-10-10 17:37 | XMS_ITS | Clinical Summary ---
Author Organization [facility] Address [address] [place] [id number] Care Team Providers Care Gold Blower Name Role Phone Shane Guthrie MD Primary Care Provider [phone] Allergies Active Allergy Reactions Criticality Noted Date [...] 91 01/27/2020 2:04 AM EDT Temperature 36.3 C (97.4 F) 01/27/2020 2:04 AM EDT Respiratory Rate 18 01/27/2020 2:04 AM EDT Oxygen Saturation 96% 01/27/2020 2:04 AM EDT Inhaled Oxygen Concentration - - Weight - - Height - - Body Mass Index - - Plan of Treatment Not on file Care Teams Gold Blower Relationship Specialty Start Date End Date Shane Guthrie MD [address] [facility] [place] [address] PCP - General Physical Medicine and Rehabilitation 01/27/20
== END 2024-07-11 00:01 | disposition home or self-care (01) ==
LOC: CF
PROVIDERS: PCP Nurse Practitioner; Visit Provider Urology
DX: R31.29 Other microscopic hematuria (principal); R39.9 Unspecified symptoms and signs involving the genitourinary system; Z13.9 Encounter for screening, unspecified; F17.210 Nicotine dependence, cigarettes, uncomplicated
CPT/HCPCS: 51798; 81003; 99212

== ENCOUNTER 2024-07-11 16:06 | Outpatient (AMB) | payer MEDICAID, SELFPAY ==
--- NOTE | 2024-07-11 16:13 | A.OFFVIS_ITS ---
Intake Visit Reasons: Hydrodistention- follow up Intake Note: Patient presents today for follow up on hydrodistention Urology Medications: oxybutynin Blood Thinner: none PVR: 0ml's Bridge Saw Operator Required: No Accompanied by: Self / Same As Patient Allergies Sulfa (Sulfonamide Antibiotics) Allergy (Severe, Verified 07/11/24 16:33) lost consciousness amoxicillin Allergy (Unknown, Verified 07/11/24 16:33) Unknown clavulanic acid [Augmentin] Allergy (Unknown, Verified 07/11/24 16:33) Unknown hydrocodone Allergy (Unknown, Verified 07/11/24 16:33) Unknown Penicillins Allergy (Unknown, Verified 07/11/24 16:33) Unknown tomato Allergy (Unknown, Verified 07/11/24 16:33) Unknown tramadol Allergy (Unknown, Verified 07/11/24 16:33) Unknown doxycycline Adverse Reaction (Intermediate, Verified 07/11/24 16:33) rash Medication List - Last Reconciled 07/11/24 by Nataliya Doherty MD atenolol 25 mg PO DAILY buprenorphine-naloxone 8-2 mg (Suboxone) 12 mg sublingual DAILY bupropion HCl XL 150 mg PO QAM clonazepam 0.5 mg PO BID norgestrel-ethinyl estradiol 0.3-30 mg-mcg (Low-Ogestrel (28)) 1 tab PO DAILY oxybutynin chloride ER 15 mg PO BID 90 days phenazopyridine (Pyridium) 200 mg PO TID PRN sumatriptan succinate 50 mg PO DAILY PRN tizanidine 4 mg PO BID HPI Comments Details: 07/11/24-- History of Present Illness The patient is a 33-year-old female presenting for a follow-up of chronic interstitial cystitis. The patient has experienced varying symptoms over time, managing flare-ups primarily with medications like Macrobid when urinary tract infections occur. A previous intervention revealed multiple bladder polyps, which have since been monitored carefully. During the recent cystoscopy hydrodistension, no polyps were noted, and the bladder demonstrated adequate capacity and minimal irritation. Past diagnostic evaluations highlight an absence of polyps in recent years. The patient manages symptom exacerbations through dietary moderation and is awaiting further imaging studies for a comprehensive assessment. Urinary Symptoms Review - Urge frequency and varying intensity of symptoms reported. - Significant symptom relief noted with Macrobid during urinary tract infections. - Minimal irritative changes in the bladder observed during recent cystoscopy. - Adequate bladder capacity of 1000 mL during passive distension noted. - Mention of dietary triggers affecting symptoms. Results - Tests and Diagnostics: - Recent cystoscopy showed minimal irritative changes and adequate bladder capacity (1000 mL). - Recent cystoscopy demonstrated no current polyps present in the bladder. Discussion Notes During the consultation, I discussed the findings from the recent cystoscopy which revealed minimal irritative changes and no bladder polyps. This is reassuring given the patient's past history of polyps. We also addressed the chronic nature of interstitial cystitis and the variability in symptom presentation, emphasizing the need for ongoing management of urinary symptoms and identification of dietary triggers. The patient is currently on oxybutynin for symptom control, and I plan to continue this until we obtain further imaging results. I informed her about the anticipated scheduling and follow-up for the CT urogram, which will further assess kidney function and rule out nephrolithiasis as a contributing factor to her condition. The importance of adhering to dietary recommendations to minimize symptom exacerbation was reinforced. Consent was implied for ongoing management with continued assessment post-imaging results. 05/13/24--Cierra is a 33 year old female patient of Dr. Hall. She has a past medical history of opiate abuse, PTSD, anxiety, SVT, and interstitial cystitis. She presents to the office today for follow-up of her overactive bladder and interstitial cystitis. In discussion with the patient today she reports since her last office visit here over a year ago she has been under a lot of stress. She discusses being unable to make it to follow-up appointments as scheduled due to other health issue she has been experiencing as well as the recent sudden decline in her mother's mental and physical health. She discusses at length her mother's medical issues. She also discusses following up with her PCP frequently as she has lost over 55 lb in the last year to year and a half unintentionally. She continues to report episodes of urinary urgency, urinary frequency, straining with urination, and bladder pressure. She reports feeling oxybutynin is helpful with episodes of urinary urgency and frequency however continues to experience bladder pressure. In office urinalysis results reviewed with the patient today 1+ microscopic hematuria. We discussed at length potential causes of microscopic hematuria. She does have a longstanding history of nicotine dependence however is attempting to quit. She reports smoking for over 15 years if not longer. She does have a previous history of a cystoscopy with hydrodistention in the past with Dr. White and felt this was helpful. In review of patient's chart ([facility]) it does appear patient underwent 11/2018 cystoscopy, hydrodistention, bladder biopsy x4 with coagulation and fulguration. Pathology 12/03 noted urethral mucosa with acute and chronic inflammation and reactive urothelial atypia; negative for malignancy. She reports previously being on Elmiron for her interstitial cystitis however started experiencing hair loss therefore discontinued the medication. We discussed further workup of microscopic hematuria to include in office cystoscopy however patient discusses at length her history of anxiety and PTSD and does not feel she will be able to undergo an in office cystoscopy. We discussed obtaining CT urogram for further assessment evaluation and obtaining cystoscopy under sedation. She was enquiring repeat hydrodistention as she felt this was helpful in the past. She otherwise denies gross/visible hematuria, flank pain, fever, and or chills. PVR 0 mL. She otherwise offers no other issues or concerns at this time. [facility] Medical History Opioid abuse PTSD (post-traumatic stress disorder) Anxiety SVT (supraventricular tachycardia) Interstitial cystitis (chronic) with hematuria Surgical History History of esophagogastroduodenoscopy (EGD) Hx of oral surgery Hx of cystoscopy Social History Alcohol intake: never Patient Tobacco Use Status: Current everyday Tobacco user Tobacco use type: Cigarette Cigarettes Per Day: 9 Years Smoked: 17 Substance Use Type: Former Substance User, Marijuana and Opiates Review of Systems Const All systems reviewed & are unremarkable except as noted in HPI and below Reports no additional complaints Eyes Reports no additional complaints ENT Reports no additional complaints Card Reports no additional complaints Resp Reports no additional complaints GI Reports no additional complaints Reports as per HPI Musc Reports no additional complaints Skin/Breast Reports system reviewed and no additional complaints, except as documented Neuro Reports no additional complaints Psych Reports no additional complaints Endo Reports no additional complaints Rakesh/Lymph Reports no additional complaints Aller/Immun Reports no additional complaints Office Procedures Post Void Residual Post Residual Void Post Void Residual (PVR): 0 [id number] Void Residual by ultrasound Results AMB Urinalysis, Automated UA Leukoctes 0 Bar/uL Last Edit by Crystal Kwan on 07/11/24 16:44 UA Nitrite Negative Last Edit by Crystal Kwan on 07/11/24 16:44 UA Urobilinogen 3.5 mg/dL Last Edit by Crystal Kwan on 07/11/24 16:44 UA Protein 1 mg/dL Last Edit by Crystal Kwan on 07/11/24 16:44 UA pH 6.5 Last Edit by Crystal Kwan on 07/11/24 16:44 UA Blood 0 Shan/uL Last Edit by Crystal Kwan on 07/11/24 16:44 UA Specific Gorman 1.020 Last Edit by Crystal Kwan on 07/11/24 16:44 UA Ketone Negative Last Edit by Crystal Kwan on 07/11/24 16:44 UA Bilirubin 0 mg/dL Last Edit by Crystal Kwan on 07/11/24 16:44 UA Glucose 0 mg/dL Last Edit by Crystal Kwan on 07/11/24 16:44 Assessment & Plan Assessment & Plan Plan Plan - Continue taking oxybutynin as prescribed to manage urinary symptoms. - Avoid dietary triggers that may exacerbate symptoms, as per the provided list. - Schedule and complete the CT urogram as soon as possible. - Follow up with Mansi Mederos NP for CT urogram results and further management. - Monitor for any changes in symptoms and report new or worsening symptoms promptly. - Maintain a diary of dietary intake to identify potential triggers. Orders: Orders AMB Urinalysis Automated Today Z13.9 - Encounter for screening, unspecified AMB Post Void Residual by ultrasound Today R39.9 - Unspecified symptoms and signs involving the genitourinary system Patient Instructions: The patient had an opportunity to ask questions regarding treatment plan. The patient expressed understanding and agreement with the above treatment plan. The patient is aware they should contact our office by phone for worsening of their current condition or the appearance of new symptoms. Compliance is encouraged with any medications and followup testing that is ordered. It is a privilege to be allowed the opportunity to participate in the urologic care of your patient. If you have any questions or concerns regarding treatment for the above conditions please do not hesitate to contact me. The office telephone contact is [phone]. This note is constructed in part using voice recognition software. While every effort has been made to ensure accuracy health and wellness sales consultant errors may have been included. Yours sincerely, Nataliya Doherty MD Scribe Plan - Not visible on output: Patient was informed and verbally consented to the use of an ambient scribe for clinic note documentation during this visit. Coding CPT Codes Post Residual Void - PVR CPT Code: 89721-[id number] Void Residual by ultrasound ([id number])
--- OUTSIDE RECORDS SUMMARY | 2024-07-11 19:22 | XMS_ITS | Clinical Summary ---
Author Organization [facility] Address [address] [place] [address] Care Team Providers Care Foxer Name Role Phone Shane Guthrie MD Primary Care Provider [phone] Allergies Active Allergy Reactions Criticality Noted Date [...] of Treatment Not on file Care Teams Foxer Relationship Specialty Start Date End Date Shane Guthrie MD [address] [facility] [place] [address] PCP - General Physical Medicine and Rehabilitation 01/27/20
--- OUTSIDE RECORDS SUMMARY | 2024-07-11 19:22 | XMS_ITS | Clinical Summary ---
Author Organization [facility] ity [place] [address] Care Team Providers Care Extension Course Coordinator Name Role Phone Shane Guthrie MD Primary Care Provider [phone] Social History Tobacco Use Types Packs/Day Years [...] age to complete this topic Care Teams Extension Course Coordinator Relationship Specialty Start Date End Date Shane Guthrie MD PCP - General Physical Medicine and Rehabilitation 01/27/20
== END 2024-07-11 16:38 | disposition home or self-care (01) ==
LOC: HO.HUSH 16:07
PROVIDERS: PCP Nurse Practitioner; Visit Provider Urology
DX: Z13.9 Encounter for screening, unspecified (principal)